=== PATIENT | male | born 1930 | race Caucasian/White ===

== ENCOUNTER → 2018-08-04 | Outpatient (REF) | payer MEDICARE ==
[2018-08-05 11:35] LABS: BASO % 0.5 % (0.0-1.0); EOS # 0.1 10^3/uL (0.0-0.50); EOS % 1.1 % (0.0-3.0); HEMATOCRIT 45.9 % (42.0-52.0); HEMOGLOBIN 14.6 g/dl (13.5-17.5); LYMPH # 2.5 10^3/uL (1.5-4.5); MEAN CORPUSCULAR HEMOGLOBIN 32.8 pg (27.0-33.0); MEAN CORPUSCULAR HGB CONC 31.8 g/dl (32.0-36.5); MEAN CORPUSCULAR VOLUME 103.1 fl (80.0-96.0); MONO # 0.6 10^3/uL (0.0-0.8); MONO % 7.3 % (0.0-5.0); NEUTROPHILS % 60.9 % (36.0-66.0); PLATELET COUNT, AUTOMATED 166 10^3/uL (150-450); RED BLOOD COUNT 4.45 10^6/uL (4.30-6.10); WHITE BLOOD COUNT 8.2 10^3/uL (4.0-10.0)
[2018-08-05 12:32] LABS: ALBUMIN 3.7 GM/DL (3.2-5.2); ALT/SGPT 9 U/L (12-78); BILIRUBIN,TOTAL 0.9 MG/DL (0.2-1.0); BLOOD UREA NITROGEN 16 MG/DL (7-18); CALCIUM LEVEL 8.7 MG/DL (8.8-10.2); CARBON DIOXIDE LEVEL 26 MEQ/L (21-32); CHLORIDE LEVEL 106 MEQ/L (98-107); CREATININE FOR GFR 1.11 MG/DL (0.70-1.30); GLOMERULAR FILTRATION RATE > 60.0 (>35); GLUCOSE, FASTING 113 MG/DL (70-100); POTASSIUM SERUM 4.3 MEQ/L (3.5-5.1); SODIUM LEVEL 141 MEQ/L (136-145); TOTAL PROTEIN 7.5 GM/DL (6.4-8.2)
== END ==
LOC: M SFHCCLAY 13:46
PROVIDERS: ATTEND Family Medicine
DX: R42 Dizziness and giddiness (principal)
CPT/HCPCS: 36415; 80053; 85025; G0463

== ENCOUNTER → 2018-09-01 | Outpatient (CLI) | payer MEDICARE ==
--- NOTE | 2018-09-01 15:54 | REP ---
CHEST, TWO VIEWS: Two views of the chest are performed. There is diffuse interstitial fibrotic change. No definite acute infiltrate is seen. Heart is normal in size. There is calcification and tortuosity of the thoracic aorta. Mediastinal silhouette is otherwise unremarkable. There are mild degenerative changes of the spine. IMPRESSION: Chronic changes. No evidence of acute pulmonary disease.
== END ==
LOC: M CLY 15:07
PROVIDERS: ATTEND Family Medicine
DX: J44.9 Chronic obstructive pulmonary disease, unspecified (principal)
CPT/HCPCS: 71046; G0463

== ENCOUNTER 2018-11-18 20:41 | Emergency (ER) | payer MEDICAID, MEDICARE ==
[~2018-11-18] VITALS: Ht 172.7 cm; Wt 80.0 kg
[2018-11-18] MEDS ORDERED: IPRATROPIUM 0.5MG/ALBUTEROL 2.5MG INH SOL UD 3ML (DUONEB)(J7620) NEB PRN (23:30)
[2018-11-19 00:31] LABS: BASO % 0.3 % (0.0-1.0); EOS % 0.2 % (0.0-3.0); HEMATOCRIT 36.8 % (42.0-52.0); HEMOGLOBIN 11.9 g/dl (13.5-17.5); LYMPH # 2.4 10^3/uL (1.5-4.5); LYMPH % 21.9 % (24.0-44.0); MEAN CORPUSCULAR HEMOGLOBIN 32.7 pg (27.0-33.0); MEAN CORPUSCULAR HGB CONC 32.3 g/dl (32.0-36.5); MEAN CORPUSCULAR VOLUME 101.1 fl (80.0-96.0); MONO # 1.1 10^3/uL (0.0-0.8); MONO % 10.2 % (0.0-5.0); NEUTROPHILS # 7.4 10^3/uL (1.8-7.7); NEUTROPHILS % 66.9 % (36.0-66.0); PLATELET COUNT, AUTOMATED 214 10^3/uL (150-450); RED BLOOD COUNT 3.64 10^6/uL (4.30-6.10); VENOUS BASE EXCESS -2.2 (-2.0-2.0); VENOUS HCO3 23.1 MEQ/L (23.0-27.0); VENOUS O2 SATURATION 57.4 % (60.0-80.0); VENOUS PARTIAL PRESSURE CO2 41.6 mmHg (38.0-50.0); VENOUS PARTIAL PRESSURE O2 35.1 mmHg (30.0-50.0); VENOUS PH 7.363 UNITS (7.330-7.430); VENOUS STANDARD HCO3 21.8 MEQ/L; VENOUS TOTAL CO2 24.4 MEQ/L (24.0-28.0)
[2018-11-19 01:33] VITALS: BP 111/69
[2018-11-19 01:38] LABS: CALCIUM LEVEL 8.4 MG/DL (8.8-10.2); CK-MB VALUE MASS 1.1 NG/ML (<3.6); CREATININE FOR GFR 1.39 MG/DL (0.70-1.30); GLOMERULAR FILTRATION RATE 51.2 (>35); MB/CK RELATIVE INDEX 2.29 (< OR =4); POTASSIUM SERUM 5.1 MEQ/L (3.5-5.1); TROPONIN I 0.2 NG/ML (< 0.10)
[2018-11-19] MEDS ORDERED: LASI20TA3 PO (02:10)
[2018-11-19] MEDS ORDERED: FLOM0.4C39 PO (02:10)
[2018-11-19] MEDS ORDERED: FUROSEMIDE 40 MG TAB PO ONE (02:15)
[2018-11-19] MEDS ORDERED: TAMSULOSIN 0.4 MG CAP PO ONE (02:15)
--- NOTE | 2018-11-19 05:47 | REP ---
Clinical: Cough and dyspnea. Technique: PA and lateral. Comparison: 09/01/2018. Findings: Mediastinum and cardiac silhouette are normal. Diffuse chronic interstitial changes noted throughout the bilateral lung ding. Superimposed interstitial edema with bibasilar infiltrate/atelectasis and small pleural effusions noted. No pneumothorax. Skeletal structures intact. Impression: Findings including increased interstitial markings with bibasilar opacities and small pleural effusions most compatible with pulmonary interstitial edema. Electronically Signed by Ray Campbell MD 11/19/2018 05:39 A
--- NOTE | 2018-11-19 21:36 | ECGEPIP ---
[facility] - ED Test Date: 2018-11-18 Pat Name: ROSA TINAJERO Department: Room: - Gender: Male Abstracter: mick : [id number] Requested By: EL Rabago Order Number: [id number] Reading MD: Betty Carpenter Measurements Intervals [place] Rate: 96 P: ND: 136 QRS: 8 QRSD: 129 T: 196 QT: 387 QTc: 490 Interpretive Statements SINUS RHYTHM WITH OCCASIONAL ECTOPIC PREMATURE COMPLEXES RIGHT BUNDLE BRANCH BLOCK MODERATE T-WAVE ABNORMALITY, CONSIDER ISCHEMIA NO PRIOR Electronically Signed on 11-19-2018 21:36:25 EDT by Betty Carpenter
== END 2018-11-19 02:58 | disposition home or self-care (01) ==
LOC: M ED 20:41
DX: I50.9 Heart failure, unspecified (principal); I45.10 Unspecified right bundle-branch block; K21.9 Gastro-esophageal reflux disease without esophagitis; Z79.899 Other long term (current) drug therapy; Z79.01 Long term (current) use of anticoagulants; Z87.891 Personal history of nicotine dependence

== ENCOUNTER → 2018-11-24 | Outpatient (REF) | payer MEDICARE ==
[~2018-11-24] MED LIST: FLOM0.4C39 PO; FURO20TA2 PO; IPRA0.00 INH; LASI20TA3 PO; OMEP-218 PO; VITA-172 PO
[2018-11-24 18:02] LABS: CALCIUM LEVEL 8.7 MG/DL (8.8-10.2); CREATININE FOR GFR 1.28 MG/DL (0.70-1.30); GLOMERULAR FILTRATION RATE 56.3 (>35); POTASSIUM SERUM 4.1 MEQ/L (3.5-5.1)
== END ==
LOC: M SFHCCLAY 11:47
PROVIDERS: ATTEND Family Medicine
DX: J44.9 Chronic obstructive pulmonary disease, unspecified (principal)

== ENCOUNTER 2018-11-25 13:05 | Inpatient (IN) | payer MEDICARE ==
[~2018-11-25] VITALS: Ht 170.2 cm; Wt 60.1 kg
[~2018-11-25 13:05] MED LIST changes: -FURO20TA2 PO; -IPRA0.00 INH; -OMEP-218 PO; -VITA-172 PO
[2018-11-25] MEDS ORDERED: IPRA0.00 INH (13:19)
[2018-11-25] MEDS ORDERED: OMEP-218 PO (13:19)
[2018-11-25] MEDS ORDERED: methylPREDNISolone INJ 125 MG/2 ML VIAL (J2930) IV ONE (13:45)
[2018-11-25] MEDS ORDERED: IPRATROPIUM 0.5MG/ALBUTEROL 2.5MG INH SOL UD 3ML (DUONEB)(J7620) NEB ONE (13:45)
[2018-11-25 13:47] LABS: BASO % 0.2 % (0.0-1.0); EOS # 0.2 10^3/uL (0.0-0.50); EOS % 2.2 % (0.0-3.0); HEMATOCRIT 38.5 % (42.0-52.0); LYMPH # 2.3 10^3/uL (1.5-4.5); LYMPH % 27.8 % (24.0-44.0); MEAN CORPUSCULAR HEMOGLOBIN 32.2 pg (27.0-33.0); MEAN CORPUSCULAR HGB CONC 31.2 g/dl (32.0-36.5); MEAN CORPUSCULAR VOLUME 103.2 fl (80.0-96.0); MONO # 0.7 10^3/uL (0.0-0.8); MONO % 8.4 % (0.0-5.0); NEUTROPHILS % 60.8 % (36.0-66.0); PLATELET COUNT, AUTOMATED 213 10^3/uL (150-450); RED BLOOD COUNT 3.73 10^6/uL (4.30-6.10); WHITE BLOOD COUNT 8.2 10^3/uL (4.0-10.0)
[2018-11-25 14:06] LABS: CALCIUM LEVEL 8.6 MG/DL (8.8-10.2); CREATININE FOR GFR 1.31 MG/DL (0.70-1.30); GLOMERULAR FILTRATION RATE 54.8 (>35); POTASSIUM SERUM 4.4 MEQ/L (3.5-5.1)
--- NOTE | 2018-11-25 14:13 | ECGEPIP ---
[facility] - ED Test Date: 2018-11-25 Pat Name: ROSA TINAJERO Department: Room: - Gender: Male Hospitality Host: JAYJAY : 1930 Requested By: Betty Carpenter Order Number: [id number] Reading MD: Chavo Dawn Measurements Intervals [place] Rate: 163 P: [place]: -1 QRS: 32 QRSD: 134 T: QT: 274 QTc: 451 Interpretive Statements ATRIAL FIBRILLATION WITH RAPID VENTRICULAR RESPONSE WITH ABERRANT CONDUCTION OR VENTRICULAR PREMATURE COMPLEXES Low QRS complex voltage in the limb leads Nonspecific ST-T wave abnormalities Prolonged QTc INDETERMINATE AXIS RIGHT BUNDLE BRANCH BLOCK Previous tracing done on 11-18-18 was normal sinus rhythm Electronically Signed on 11-25-2018 14:12:58 EDT by Chavo Dawn
[2018-11-25 15:00] LABS: ALBUMIN 3.3 GM/DL (3.2-5.2); BILIRUBIN,DIRECT 0.4 MG/DL (0.0-0.2); FREE T4 1.4 NG/DL (0.76-1.46); MB/CK RELATIVE INDEX 4.76 (< OR =4); PHOSPHORUS LEVEL 3.7 MG/DL (2.5-4.9); THYROID STIMULATING HORMONE 1.67 uIU/ML (0.358-3.740); TOTAL PROTEIN 6.9 GM/DL (6.4-8.2); TROPONIN I 0.09 NG/ML (< 0.10)
[2018-11-25] MEDS ORDERED: FLOM0.4C39 PO (15:01)
[2018-11-25] MEDS ORDERED: FURO20TA2 PO (15:01)
[2018-11-25] MEDS ORDERED: VITA-172 PO (15:01)
--- NOTE | 2018-11-25 15:08 | REP ---
Clinical: Shortness of breath. Technique: AP and lateral. Findings: Cardiomegaly is appreciated along with evidence to suggest pulmonary interstitial edema, bibasilar atelectasis and moderate pleural effusions. Impression: Cardiomegaly with moderate pleural effusions, atelectasis and interstitial edema. Electronically Signed by Ray Campbell MD 11/25/2018 02:59 P
[2018-11-25] MEDS: METOPROLOL 5 MG/5 ML VIAL IV SCH ×3 (15:20→21:51)
[2018-11-25] MEDS ORDERED: FUROSEMIDE 40 MG/4 ML VIAL (J1940) IV ONE (15:45)
[2018-11-25 17:31] LABS: INR 1.23; PROTHROMBIN TIME 15.2 SECONDS (11.8-14.0)
[2018-11-25] MEDS ORDERED: MAALOX 30 ML SUSP *UDC PO PRN (18:15)
[2018-11-25] MEDS ORDERED: ACETAMINOPHEN TAB 650MG DOSE (2X325MG) PO PRN (18:15)
[2018-11-25] MEDS ORDERED: MOM 30ML SUSPENSION UDC PO PRN (18:15)
[2018-11-25] MEDS ORDERED: DIGOXIN INJ 0.5 MG/2 ML AMP (J1160) IV STA (18:22)
[2018-11-25] MEDS ORDERED: IPRATROPIUM 0.5MG/ALBUTEROL 2.5MG INH SOL UD 3ML (DUONEB)(J7620) NEB PRN (18:30)
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
[2018-11-25 21:02] VITALS: BP 127/78
[2018-11-25] MEDS: METOPROLOL TART 12.5 MG PER 1/2 TAB PO SCH (22:30)
[2018-11-25] MEDS: TAMSULOSIN 0.4 MG CAP PO SCH (22:30)
[2018-11-25] MEDS: APIXABAN 5 MG TAB (ELIQUIS) PO SCH (22:30)
[2018-11-25] MEDS: OMEPRAZOLE 20 MG CAP PO SCH (22:31)
[2018-11-25 23:59] VITALS: BP 145/82
[2018-11-26 04:00] VITALS: BP 136/68
[2018-11-26 05:39] LABS: HEMATOCRIT 37.3 % (42.0-52.0); HEMOGLOBIN 11.7 g/dl (13.5-17.5); MEAN CORPUSCULAR HEMOGLOBIN 31.1 pg (27.0-33.0); MEAN CORPUSCULAR HGB CONC 31.4 g/dl (32.0-36.5); MEAN CORPUSCULAR VOLUME 99.2 fl (80.0-96.0); PLATELET COUNT, AUTOMATED 228 10^3/uL (150-450); RED BLOOD COUNT 3.76 10^6/uL (4.30-6.10); WHITE BLOOD COUNT 4.6 10^3/uL (4.0-10.0)
[2018-11-26] MEDS: METOPROLOL TART 12.5 MG PER 1/2 TAB PO SCH ×4 (05:49→21:08)
[2018-11-26 05:57] LABS: CALCIUM LEVEL 8.2 MG/DL (8.8-10.2); CREATININE FOR GFR 1.47 MG/DL (0.70-1.30); MAGNESIUM LEVEL 1.9 MG/DL (1.8-2.4); POTASSIUM SERUM 4.6 MEQ/L (3.5-5.1)
[2018-11-26] MEDS ORDERED: DIGOXIN INJ 0.5 MG/2 ML AMP (J1160) IV ONE (06:00)
[2018-11-26 08:00] VITALS: BP 142/50
[2018-11-26] MEDS: FUROSEMIDE 40 MG TAB PO SCH ×2 (09:00→16:21)
[2018-11-26 12:00] VITALS: BP 140/80
[2018-11-26] MEDS ORDERED: SLF 3 ML SYR IV PRN (12:15)
[2018-11-26] MEDS: APIXABAN 5 MG TAB (ELIQUIS) PO SCH ×2 (14:20→21:08)
[2018-11-26] MEDS: CYANOCOBALAMIN 500 MCG TAB PO SCH (14:25)
[2018-11-26] MEDS ORDERED: VARIBAR PUDDING 40% w/v 230ML TUBE As Ordered ONE (15:04)
[2018-11-26] MEDS ORDERED: E-Z-PAQUE 96% w/w SUSP 176GM BTL As Ordered ONE (15:05)
[2018-11-26] MEDS ORDERED: BARIUM SULFATE 700 MG TABLET (E-Z-DISK) As Ordered ONE (15:05)
[2018-11-26] MEDS ORDERED: VARIBAR NECTAR 40% w/v 240ML SUSP BTL As Ordered ONE (15:05)
[2018-11-26 16:00] VITALS: BP 162/72
--- NOTE | 2018-11-26 16:10 | NUR ---
Modified Barium Swallow Study completed d/t consistent cough prior to and during PO intake. Wet vocal quality throughout. Pt presents with mild oral phase dysphagia as characterized poor dentition and decreased a/p transfer (observed with barium tablet). Recommend: Level 2 solids and regular thin liquids. Meds crushed in puree assist. Full upright position during and following (30-45 min)meals. Addendum: 11/28/18 at 1101 by PATEL SIMPSON [facility] SP Amended: Links added.
[2018-11-26] MEDS: SLF 3 ML SYR IV SCH ×2 (16:20→21:09)
--- NOTE | 2018-11-26 17:54 | ECHO ---
DATE OF PROCEDURE: 11/26/2018 AGE: 88 GENDER: Male HEIGHT: 67 inches WEIGHT: 147 pounds BODY SURFACE AREA: 1.78 m2. PATIENT LOCATION: Inpatient, PCU, room 3211 REFERRING PHYSICIAN: Domo Rasmussen MD INDICATION: Dyspnea. 2-D MEASUREMENTS: RV: 4.4 cm LV: 4.8 cm Septum: 1.2 cm Posterior wall: 1.2 cm Aortic root: 3.3 cm LA: 4.5 cm LVEF: 45 - 50% DOPPLER MEASUREMENTS: AV: 1.76 m/s LVOT: 0.58 m/s LVOT diameter: 1.7 cm Mean AV systolic gradient: 7 mmHg Dimensionless index: 0.3 MV-E: 117 Early mitral deceleration time: 151 ms E prime: 5, E/E prime ratio: 22 PCWP: 22 mmHg PV: 0.58 RVSP: 55 mmHg IVC: 2.8 cm COMMENTS Underlying atrial fibrillation with somewhat rapid ventricular response averaging 100 - 110 bpm. Right bundle branch block. Somewhat challenging study in light of the patient's body habitus, but diagnostically useful information was still obtained. Borderline concentric left ventricle hypertrophy with at least mild global hypokinesis. Mild to moderately dilated left atrium. Unable to comment on LV diastolic function in light of atrial fibrillation, but current estimated mean left atrial pressure appeared to be elevated. Moderately dilated right heart chambers with marked right ventricular free wall hypokinesis and Doppler evidence of at least moderate to moderately severe pulmonary hypertension. Prominently dilated IVC with reduced respiratory collapse in keeping with elevated central venous pressure/right heart failure. Moderately severe thickening of three equal size aortic cusps with moderate aortic stenosis. Peak or mean transvalvular gradient was relatively soft, yet his ejection fraction is reduced, underestimating the degree of aortic stenosis. Very mild aortic insufficiency. Normal aortic dimensions Severe mitral annular calcification with thickening of the mitral leaflets but no LV inflow tract obstruction and only mild insufficiency. Normal appearing tricuspid valve with at least mild - moderate insufficiency. No apparent intracardiac mass or pericardial effusion.
[2018-11-26 20:00] VITALS: BP 134/63
[2018-11-26] MEDS: OMEPRAZOLE 20 MG CAP PO SCH (21:08)
[2018-11-26] MEDS: TAMSULOSIN 0.4 MG CAP PO SCH (21:08)
[2018-11-26 23:59] VITALS: BP 149/73
--- NOTE | 2018-11-27 01:49 | IPNPDOC ---
Subjective Date Seen The patient was seen on 11/26/18. Subjective Chief Complaint/HPI dyspnea Events since last encounter Patient seen today after completing swallow eval, OK for mechanical soft diet. He is eager to be discharged home, though he still has significant cough and has not diuresed much. Constitutional: Denies: Chills, Fever Pulmonary: Reports: Dyspnea, Cough Cardiovascular: Reports: Palpitations; Denies: Chest Pain Gastrointestinal: Denies: Nausea, Vomiting, Diarrhea, Constipation Psych: Reports: Mood Normal Objective Physical Examination General Exam: Positive: Alert, Cooperative, Moderate Distress Eye Exam: Positive: PERRLA, Conjunctiva & lids normal, EOMI; Negative: Sclera icteric ENT Exam: Positive: Atraumatic, Mucous membr. moist/pink, Pharynx Normal Neck Exam: Positive: Supple, JVD Chest Exam: Positive: Rales, Diminished Heart Exam: Positive: Tachycardic, Irregular Rhythm, Normal S1, Normal S2; Negative: Murmurs Telemetry: Positive: Atrial fibrillation Abdomen Exam: Positive: Normal bowel sounds, Soft; Negative: Tenderness, Hepatospenomegaly Extremity Exam: Positive: Edema (mild), Normal pulses; Negative: Clubbing, Cyanosis Skin Exam: Positive: Nl turgor and temperature; Negative: Breakdown, Lesion Neuro Exam: Positive: Normal Gait, Normal Speech, Cranial Nerves 3-12 NL, Reflexes 2+ Psych Exam: Positive: Mental status NL, Mood NL, Oriented x 3 Assessment /Plan Problems (1) Congestive heart failure Permanent Comment: Echocardiogram 11/2018: Borderline concentric left ventricle hypertrophy with at least mild global hypokinesis. Mild to moderately dilated left atrium. Unable to comment on LV diastolic function in light of atrial fibrillation, but current estimated mean left atrial pressure appeared to be elevated. Moderately dilated right heart chambers with marked right ventricular free wall hypokinesis and Doppler evidence of at least moderate to moderately severe pulmonary hypertension. Prominently dilated IVC with reduced respiratory collapse in keeping with elevated central venous pressure/right heart failure. Moderately severe thickening of three equal size aortic cusps with moderate aortic stenosis. Peak or mean transvalvular gradient was relatively soft, yet his ejection fraction is reduced, underestimating the degree of aortic stenosis. Very mild aortic insufficiency. Normal aortic dimensions Severe mitral annular calcification with thickening of the mitral leaflets but no LV inflow tract obstruction and only mild insufficiency. Normal appearing tricuspid valve with at least mild - moderate insufficiency. Last Edited By: Kenia Dowling DO on Nov 27, 2018 01:45 Status: Acute Problem Text: Echo read today, with pulmonary HTN,and suggestion of both L and R heart failure. Attempts at diuresis have been somewhat limited secondary to borderline BP. Fluid restriction ordered. Monitoring I&Os and daily weights. (2) Atrial fibrillation Status: Acute Problem Text: On both digoxin and metoprolol; adjusted metoprolol to bid instead of tid dosing. He is fairly well rate controlled, and anticoagulated on Eliquis. Plan/VTE VTE Prophylaxis Ordered?: Yes VS, I&O, 24H, Fishbone Vital Signs/I&O Vital Signs Date Time Temp Pulse Resp B/P (MAP) Pulse Ox O2 Delivery O2 Flow Rate FiO2 11/26/18 23:59 97.3 101 18 149/73 (98) 96 11/26/18 04:30 11/25/18 20:33 Nasal Cannula I&O- Last 24 Hours up to 6 AM 11/27/18 05:59 Intake Total 0 ml Output Total 450 ml Balance -450 ml Laboratory Data 24H LABS Laboratory Tests 2 11/26/18 05:13: Nucleated Red Blood Cells % (auto) 0.0, Anion Gap 9, Glomerular Filtration Rate 48.0, Blood Urea Nitrogen 21H, Creatinine 1.47H, Sodium Level 134L, Potassium Level 4.6, Chloride Level 99, Carbon Dioxide Level 26, Calcium Level 8.2L, Magnesium Level 1.9 CBC/BMP Laboratory Tests 11/26/18 05:13 Red Blood Count 3.76 L, Mean Corpuscular Volume 99.2 H, Mean Corpuscular Hemoglobin 31.1, Mean Corpuscular Hemoglobin Concent 31.4 L, Red Cell Distribution Width 14.6 H, Calcium Level 8.2 L Microbiology Microbiology 11/25/18 Gram Stain - Final, Resulted 11/25/18 Sputum Culture - Preliminary, Resulted Strep Agalactiae Group B KENIA DOWLING DO Nov 27, 2018 01:49
[2018-11-27 04:00] VITALS: BP 134/80
[2018-11-27] MEDS: SLF 3 ML SYR IV SCH ×3 (05:03→20:48)
[2018-11-27] MEDS ORDERED: METOPROLOL TART 12.5 MG PER 1/2 TAB PO SCH (09:00)
[2018-11-27] MEDS ORDERED: DIGOXIN 0.125 MG TAB PO SCH (09:00)
[2018-11-27] MEDS: FUROSEMIDE 40 MG TAB PO SCH ×2 (10:27→15:54)
[2018-11-27] MEDS: APIXABAN 5 MG TAB (ELIQUIS) PO SCH ×2 (10:27→20:14)
[2018-11-27] MEDS: CYANOCOBALAMIN 500 MCG TAB PO SCH (10:27)
[2018-11-27 12:00] VITALS: BP 140/60
[2018-11-27 12:47] LABS: HEMATOCRIT 39.2 % (42.0-52.0); HEMOGLOBIN 12.5 g/dl (13.5-17.5); MEAN CORPUSCULAR HEMOGLOBIN 31.7 pg (27.0-33.0); MEAN CORPUSCULAR HGB CONC 31.9 g/dl (32.0-36.5); MEAN CORPUSCULAR VOLUME 99.5 fl (80.0-96.0); PLATELET COUNT, AUTOMATED 268 10^3/uL (150-450); RED BLOOD COUNT 3.94 10^6/uL (4.30-6.10)
--- NOTE | 2018-11-27 13:01 | IPNPDOC ---
Subjective Date Seen The patient was seen on 11/27/18. Subjective Chief Complaint/HPI Pt this morning has been combative towards the business control specialist. Intermittently confused and uncooperative to nursing. Ai reports consistency in MS this morning. Nurse reports 1.8 followed by 4.2 second pause this morning. General: Reports: ROS Unobtainable Objective Physical Examination General Exam: Positive: Alert, No Acute Distress (pt appears comfortable, he doesn't clearly answer questions); Negative: Cooperative ENT Exam: Positive: Mucous membr. moist/pink Neck Exam: Positive: Supple, JVD Chest Exam: Positive: Rales (bibasilar), Diminished (throughout) Heart Exam: Positive: Tachycardic, Irregular Rhythm, Normal S1, Normal S2; Negative: Murmurs Telemetry: Positive: Atrial fibrillation Abdomen Exam: Positive: Normal bowel sounds, Soft; Negative: Tenderness, Hepatospenomegaly Extremity Exam: Positive: Edema (mild), Normal pulses; Negative: Clubbing, Cyanosis Skin Exam: Positive: Nl turgor and temperature; Negative: Breakdown, Lesion Neuro Exam: Positive: Normal Gait, Normal Speech, Cranial Nerves 3-12 NL, Reflexes 2+ Psych Exam: Positive: Mental status NL, Mood NL, Oriented x 3 Assessment /Plan Problems (1) Digoxin toxicity Status: Acute Problem Text: mild sx of confusion/anorexia-held p today's dose (2) Atrial fibrillation Status: Acute Response to Treatment: Stable Problem Text: 11/27 held dig (was loaded c 0.5 IV 11/25-11/26) c level today of 2.1! and decreased met tar 12.5 BID to 6.25 QID c hold parameters given 1.8 and 4.2 s pause this morning. Spoke with Reginaldo who recommends conservative mgmt. Long dw who has limited insight to his medical condition, she insists on FULL CODE status 11/26 On both digoxin and metoprolol; adjusted metoprolol to bid instead of tid dosing. He is fairly well rate controlled, and anticoagulated on Eliquis. (3) Systolic congestive heart failure Problem Text: 11/27 on Lasix 40 mg twice daily, K 3.8-gave K 20 po x 1, tf cr (baseline ~1.1-1.2); + bruna 12.5, favor LD ARB vs Entresto if BP tolerates (4) Pulmonary hypertension Status: Chronic Response to Treatment: Stable Problem Text: moderate-severe by 11/26/2018 TTE (5) Aortic stenosis Status: Chronic Response to Treatment: Stable Problem Text: moderate by 11/26/18 TTE (6) CKD (chronic kidney disease), stage III Status: Chronic Problem Text: baseline cr 1.1-1.2 Plan/VTE VTE Prophylaxis Ordered?: Yes VS, I&O, 24H, Fishbone Vital Signs/I&O Vital Signs Date Time Temp Pulse Resp B/P (MAP) Pulse Ox O2 Delivery O2 Flow Rate FiO2 11/27/18 10:27 99 145/68 11/27/18 08:00 96.8 18 90 11/26/18 04:30 11/25/18 20:33 Nasal Cannula I&O- Last 24 Hours up to 6 AM 11/27/18 06:00 Intake Total 0 ml Output Total 650 ml Balance -650 ml Laboratory Data 24H LABS Laboratory Tests 2 11/27/18 12:22: CBC/BMP Microbiology Microbiology 11/25/18 Gram Stain - Final, Resulted 11/25/18 Sputum Culture - Preliminary, Resulted Strep Agalactiae Group B Yeast Like Organism JAZMYN MUIR PA-C Nov 27, 2018 13:01 Jd Mitchell M.D. Nov 27, 2018 14:14
[2018-11-27 13:04] LABS: CALCIUM LEVEL 8.3 MG/DL (8.8-10.2); CREATININE FOR GFR 1.31 MG/DL (0.70-1.30); GLOMERULAR FILTRATION RATE 54.8 (>35); MAGNESIUM LEVEL 2.3 MG/DL (1.8-2.4); POTASSIUM SERUM 3.8 MEQ/L (3.5-5.1)
[2018-11-27 13:32] LABS: DIGOXIN LEVEL 2.1 NG/ML (0.5-2.0)
[2018-11-27] MEDS ORDERED: POTASSIUM CHLORIDE 10 MEQ SR TABLET PO ONE (14:15)
[2018-11-27] MEDS: SPIRONOLACTONE 12.5MG PER 1/2 TABLET PO SCH (15:54)
[2018-11-27 16:00] VITALS: BP 128/60
[2018-11-27] MEDS: METOPROLOL TART 25 MG TABLET PO SCH ×2 (18:00→23:34)
[2018-11-27] MEDS ORDERED: diphenhydrAMINE 25 MG CAP PO PRN (18:30)
[2018-11-27 20:00] VITALS: BP 115/81
[2018-11-27] MEDS: TAMSULOSIN 0.4 MG CAP PO SCH (20:14)
[2018-11-27] MEDS: OMEPRAZOLE 20 MG CAP PO SCH (20:14)
[2018-11-27 23:59] VITALS: BP 97/59
[2018-11-28] VITALS (8 sets, daily range): BP systolic 82–146; BP diastolic 48–80
[2018-11-28] MEDS: SLF 3 ML SYR IV SCH ×3 (05:05→20:32)
[2018-11-28 05:20] LABS: BASO % 0.4 % (0.0-1.0); EOS # 0.2 10^3/uL (0.0-0.50); HEMATOCRIT 40.5 % (42.0-52.0); HEMOGLOBIN 12.8 g/dl (13.5-17.5); LYMPH # 2.2 10^3/uL (1.5-4.5); MEAN CORPUSCULAR HEMOGLOBIN 31.1 pg (27.0-33.0); MEAN CORPUSCULAR HGB CONC 31.6 g/dl (32.0-36.5); MEAN CORPUSCULAR VOLUME 98.5 fl (80.0-96.0); MONO # 0.6 10^3/uL (0.0-0.8); MONO % 7.2 % (0.0-5.0); NEUTROPHILS # 5.4 10^3/uL (1.8-7.7); PLATELET COUNT, AUTOMATED 252 10^3/uL (150-450); RED BLOOD COUNT 4.11 10^6/uL (4.30-6.10); WHITE BLOOD COUNT 8.5 10^3/uL (4.0-10.0)
[2018-11-28] MEDS: METOPROLOL TART 25 MG TABLET PO SCH ×3 (05:30→18:27)
[2018-11-28 05:50] LABS: BLOOD UREA NITROGEN 19 MG/DL (7-18); CALCIUM LEVEL 7.8 MG/DL (8.8-10.2); CARBON DIOXIDE LEVEL 32 MEQ/L (21-32); CHLORIDE LEVEL 99 MEQ/L (98-107); CREATININE FOR GFR 1.13 MG/DL (0.70-1.30); GLOMERULAR FILTRATION RATE > 60.0 (>35); GLUCOSE, FASTING 90 MG/DL (70-100); POTASSIUM SERUM 4.1 MEQ/L (3.5-5.1); SODIUM LEVEL 138 MEQ/L (136-145)
[2018-11-28] MEDS: APIXABAN 5 MG TAB (ELIQUIS) PO SCH ×2 (08:05→20:32)
[2018-11-28] MEDS: CYANOCOBALAMIN 500 MCG TAB PO SCH (08:05)
[2018-11-28] MEDS: FUROSEMIDE 40 MG TAB PO SCH ×2 (08:06→17:00)
[2018-11-28] MEDS: SPIRONOLACTONE 12.5MG PER 1/2 TABLET PO SCH (08:06)
--- NOTE | 2018-11-28 10:20 | IPNPDOC ---
Subjective Date Seen The patient was seen on 11/28/18. Subjective Chief Complaint/HPI Pt this morning is without new concerns. He states that he is feeling fine and would like to go home. His should be coming soon and he hopes she will take him. General: Reports: Fatigue Constitutional: Denies: Chills, Fever ENT: Denies: Head Aches Pulmonary: Denies: Dyspnea, Cough Cardiovascular: Denies: Chest Pain, Palpitations Gastrointestinal: Denies: Nausea, Vomiting, Abdominal Pain, Diarrhea Neurological: Denies: Weakness Psych: Reports: Mood Normal Objective Physical Examination General Exam: Positive: Alert, Cooperative, No Acute Distress (pt appears comfortable) ENT Exam: Positive: Mucous membr. moist/pink Neck Exam: Positive: Supple, JVD Chest Exam: Positive: Rales (bibasilar), Diminished (throughout) Heart Exam: Positive: Tachycardic, Irregular Rhythm, Normal S1, Normal S2; Negative: Murmurs Telemetry: Positive: Atrial fibrillation Abdomen Exam: Positive: Normal bowel sounds, Soft; Negative: Tenderness, Hepatospenomegaly Extremity Exam: Positive: Edema (trace BLE), Normal pulses; Negative: Clubbing, Cyanosis Skin Exam: Positive: Nl turgor and temperature; Negative: Breakdown, Lesion Neuro Exam: Positive: Normal Gait, Normal Speech, Cranial Nerves 3-12 NL, Reflexes 2+ Psych Exam: Positive: Mental status NL, Mood NL, Oriented x 3 Assessment /Plan Assessment Spoke with patient and his . EVITA filled out, expressing DNR wishes. They hope that he might be DCed tomorrow. I suspect that his I&Os have been inaccurate, but nursing staff states that they are at least confident of his output today, and his evening Lasix was held because he was strongly net negative. -- CDT Problems (1) Digoxin toxicity Status: Acute Problem Text: 11/28 MS improved, Dig has been discontinued 11/27 mild sx of confusion/anorexia-held p today's dose (2) Atrial fibrillation Status: Acute Response to Treatment: Stable Problem Text: 11/28 Metoprolol tartrate 6.25 mg q6h, cont to monitor on tele. Spoke with pt this morning regarding his ECHO results, he expressed that he wo uld like to be DNR/DNI. he would like to have this conversation with his before signing. 11/27 held dig (was loaded c 0.5 IV 11/25-11/26) c level today of 2.1! and decreased met tar 12.5 BID to 6.25 QID c hold parameters given 1.8 and 4.2 s pause this morning. Spoke with Reginaldo who recommends conservative mgmt. Long dw who has limited insight to his medical condition, she insists on FULL CODE status 11/26 On both digoxin and metoprolol; adjusted metoprolol to bid instead of tid dosing. He is fairly well rate controlled, and anticoagulated on Eliquis. (3) Systolic congestive heart failure Problem Text: 11/28 Lasix 40 mg BID, WENDY 12.5 mg daily, met tartrate 6.25 mg q6h. Pressures soft this morning, cont to monitor. Unlikely to tolerate ARB 11/27 on Lasix 40 mg twice daily, K 3.8-gave K 20 po x 1, tf cr (baseline ~1.1- 1.2); + wendy 12.5, favor LD ARB vs Entresto if BP tolerates (4) Pulmonary hypertension Status: Chronic Response to Treatment: Stable Problem Text: moderate-severe by 11/26/2018 TTE (5) Aortic stenosis Status: Chronic Response to Treatment: Stable Problem Text: moderate by 11/26/18 TTE (6) CKD (chronic kidney disease), stage III Status: Chronic Problem Text: baseline cr 1.1-1.2 Plan/VTE VTE Prophylaxis Ordered?: Yes VS, I&O, 24H, Fishbone Vital Signs/I&O Vital Signs Date Time Temp Pulse Resp B/P (MAP) Pulse Ox O2 Delivery O2 Flow Rate FiO2 11/28/18 08:00 98.0 96 19 146/70 (95) 95 11/26/18 04:30 11/25/18 20:33 Nasal Cannula I&O- Last 24 Hours up to 6 AM 11/28/18 06:00 Intake Total 360 ml Output Total 1250 ml Balance -890 ml Laboratory Data 24H LABS Laboratory Tests 2 11/27/18 12:22: Nucleated Red Blood Cells % (auto) 0.0, Anion Gap 10, Glomerular Filtration Rate 54.8, Blood Urea Nitrogen 22H, Creatinine 1.31H, Sodium Level 137, Potassium Level 3.8, Chloride Level 98, Carbon Dioxide Level 29, Calcium Level 8.3L, Magnesium Level 2.3, Digoxin Level 2.1H 11/28/18 05:06: Nucleated Red Blood Cells % (auto) 0.0, Anion Gap 7L, Glomerular Filtration Rate > 60.0, Blood Urea Nitrogen 19H, Creatinine 1.13, Sodium Level 138, Potassium Level 4.1, Chloride Level 99, Carbon Dioxide Level 32, Calcium Level 7.8L, Immature Granulocyte % (Auto) 0.4, White Blood Count 8.5, Red Blood Count 4.11L, Hemoglobin 12.8L, Hematocrit 40.5L, Mean Corpuscular Volume 98.5H, Mean Corpuscular Hemoglobin 31.1, Mean Corpuscular Hemoglobin Concent 31.6L, Red Cell Distribution Width 14.6H, Platelet Count 252, Neutrophils (%) (Auto) 64.0, Lymph ocytes (%) (Auto) 26.0, Monocytes (%) (Auto) 7.2H, Eosinophils (%) (Auto) 2.0, Basophils (%) (Auto) 0.4, Neutrophils # (Auto) 5.4, Lymphocytes # (Auto) 2.2, Monocytes # (Auto) 0.6, Eosinophils # (Auto) 0.2, Basophils # (Auto) 0.0 CBC/BMP Laboratory Tests 11/27/18 12:22 Red Blood Count 3.94 L, Mean Corpuscular Volume 99.5 H, Mean Corpuscular Hemoglobin 31.7, Mean Corpuscular Hemoglobin Concent 31.9 L, Red Cell Distribution Width 14.7 H, Calcium Level 8.3 L 11/28/18 05:06 Red Blood Count 4.11 L, Mean Corpuscular Volume 98.5 H, Mean Corpuscular Hemoglobin 31.1, Mean Corpuscular Hemoglobin Concent 31.6 L, Red Cell Distribution Width 14.6 H, Calcium Level 7.8 L, Neutrophils (%) (Auto) 64.0, Lymphocytes (%) (Auto) 26.0, Monocytes (%) (Auto) 7.2 H, Eosinophils (%) (Auto) 2.0, Basophils (%) (Auto) 0.4, Neutrophils # (Auto) 5.4, Lymphocytes # (Auto) 2.2, Monocytes # (Auto) 0.6, Eosinophils # (Auto) 0.2, Basophils # (Auto) 0.0 Microbiology Microbiology 7/2/19 Gram Stain - Final, Complete 11/25/18 Sputum Culture - Final, Complete Strep Agalactiae Group B Stenotrophomonas Maltophilia Yeast Like Organism JAZMYN MUIR PA-C Nov 28, 2018 10:19 KENIA DOWLING DO Nov 28, 2018 23:30
[2018-11-28 16:44] LABS: NT-PRO BNP 36224 PG/ML (<450)
--- NOTE | 2018-11-28 17:22 | REP ---
Clinical: Shortness of breath. CHF. Technique: PA and lateral. Comparison: 11/18/1989 Findings: Mediastinum and cardiac silhouette are stable and within normal limits. Lung ding demonstrate diffuse chronic COPD and emphysematous changes with scattered scarring and fibrosis. Bibasilar atelectasis and small right pleural effusion are noted but improved when compared through 11/18/2018. Impression: Basilar atelectasis and small right pleural effusion. Findings appear improved as compared to prior. Electronically Signed by Ray Campbell MD 11/28/2018 05:14 P
[2018-11-28] MEDS: OMEPRAZOLE 20 MG CAP PO SCH (20:32)
[2018-11-28] MEDS: TAMSULOSIN 0.4 MG CAP PO SCH (20:32)
[2018-11-29 00:16] VITALS: BP 118/60
[2018-11-29] MEDS: METOPROLOL TART 25 MG TABLET PO SCH ×3 (00:16→12:06)
[2018-11-29 04:30] VITALS: BP 120/56
[2018-11-29 05:52] LABS: HEMATOCRIT 44.8 % (42.0-52.0); HEMOGLOBIN 14.4 g/dl (13.5-17.5); MEAN CORPUSCULAR HEMOGLOBIN 31.4 pg (27.0-33.0); MEAN CORPUSCULAR HGB CONC 32.1 g/dl (32.0-36.5); MEAN CORPUSCULAR VOLUME 97.6 fl (80.0-96.0); PLATELET COUNT, AUTOMATED 278 10^3/uL (150-450); RED BLOOD COUNT 4.59 10^6/uL (4.30-6.10); WHITE BLOOD COUNT 8.1 10^3/uL (4.0-10.0)
[2018-11-29 06:24] LABS: ALBUMIN 3.1 GM/DL (3.2-5.2); BILIRUBIN,TOTAL 1.1 MG/DL (0.2-1.0); CALCIUM LEVEL 8.4 MG/DL (8.8-10.2); CREATININE FOR GFR 1.22 MG/DL (0.70-1.30); DIGOXIN LEVEL 0.9 NG/ML (0.5-2.0); GLOMERULAR FILTRATION RATE 59.5 (>35); POTASSIUM SERUM 3.5 MEQ/L (3.5-5.1)
[2018-11-29] MEDS: SLF 3 ML SYR IV SCH ×2 (06:28→14:42)
[2018-11-29 08:00] VITALS: BP 118/68
[2018-11-29] MEDS: CYANOCOBALAMIN 500 MCG TAB PO SCH (09:25)
[2018-11-29] MEDS: APIXABAN 5 MG TAB (ELIQUIS) PO SCH (09:25)
[2018-11-29] MEDS: SPIRONOLACTONE 12.5MG PER 1/2 TABLET PO SCH (09:25)
[2018-11-29] MEDS: FUROSEMIDE 40 MG TAB PO SCH (09:25)
[2018-11-29 12:00] VITALS: BP 100/60
[2018-11-29 12:06] VITALS: BP 100/60
[2018-11-29] MEDS ORDERED: ELIQ5TAB PO ×2 (13:34→20:56)
[2018-11-29] MEDS ORDERED: METO1TAB87 PO ×2 (13:34→20:56)
[2018-11-29] MEDS ORDERED: FURO40TA2 PO ×2 (13:34→20:56)
[2018-11-29] MEDS ORDERED: ALDA25TA2 PO (13:34)
[2018-11-29] MEDS ORDERED: VITA500T40 PO (20:56)
[2018-11-29] MEDS ORDERED: SPIR-10 PO (20:56)
[2018-11-29] MEDS ORDERED: IPRA0.00 INH (20:59)
[2018-11-30] MEDS ORDERED: FUROSEMIDE 40 MG TAB PO SCH
--- NOTE | 2018-11-30 02:02 | DS.PDOC ---
Discharge Summary General Date of Admission Nov 25, 2018 at 18:11 Date of Discharge November 30, 2018 Primary Care Physician: Manny Carnes M.D. Attending Physician: KENIA DOWLING DO Discharge Summary PROCEDURES PERFORMED DURING STAY: Echocardiogram, read as Underlying atrial fibrillation with somewhat rapid ventricular response averaging 100 - 110 bpm. Right bundle branch block. Somewhat challenging study in light of the patient's body habitus, but diagnostically useful information was still obtained. Borderline concentric left ventricle hypertrophy with at least mild global hypokinesis. Mild to moderately dilated left atrium. Unable to comment on LV diastolic function in light of atrial fibrillation, but current estimated mean left atrial pressure appeared to be elevated. Moderately dilated right heart chambers with marked right ventricular free wall hypokinesis and Doppler evidence of at least moderate to moderately severe pulmonary hypertension. Prominently dilated IVC with reduced respiratory collapse in keeping with elevated central venous pressure/right heart failure. Moderately severe thickening of three equal size aortic cusps with moderate aortic stenosis. Peak or mean transvalvular gradient was relatively soft, yet his ejection fraction is reduced, underestimating the degree of aortic stenosis. Very mild aortic insufficiency. Normal aortic dimensions Severe mitral annular calcification with thickening of the mitral leaflets but no LV inflow tract obstruction and only mild insufficiency. Normal appearing tricuspid valve with at least mild - moderate insufficiency. No apparent intracardiac mass or pericardial effusion. ADMITTING DIAGNOSES: 1. atrial fibrillation 2. congestive heart failure 3. dyspnea and cough 4. benign prostatic hypertrophy DISCHARGE DIAGNOSES: 1. digoxin toxicity 2. atrial fibrillation 3. systolic congestive heart failure 4. pulmonary hypertension 5. aortic stenosis 6. CKD stage 3 COMPLICATIONS/CHIEF COMPLAINT: Chf,New Onset A Fib. HISTORY OF PRESENT ILLNESS: 88m hx of [facility] 'work camp' as a child, cva, cea on left, carotid stent on right, AAAR, former smoker, presented to ED last week with swelling and sob, found to be in new chf, given script for lasix but left ama, now returns still sob, coughing, but reports swelling is much better. reports he cannot lay flat, uses two pillows. She has not been able to sleep all week worried about his breathing at night. He denies chest pains and palpitations. In the ED noted to be in new afib with rapid response. given lopressor iv and lasix. hr improved but bp now pretty low. HOSPITAL COURSE: Patient was admitted to the hospital and had an echocardiogram (results above.) His medication was adjusted; digoxin was held after he experienced digoxin toxicity, Eliquis was started for anticoagulation, and he best tolerated metoprolol in Q6 hour dosing. During his hospitalization he cou ld not consistently tolerate Lasix BID, so when he was discharged it was written for only once daily dosing. He and his were eager for discharge home, and by the afternoon of 11/29 he had passed physical therapy, achieved rate control, and demonstrated reasonable blood pressure for 24 hours, so patient was discharged home. Counseled to call Saturday for followup with PCP. PHYSICAL EXAMINATION ON DISCHARGE: VITAL SIGNS: Please see below. GENERAL: elderly male, NAD HEENT: mucous membranes moist NECK: supple CARDIOVASCULAR EXAMINATION: regular rate and rhythm RESPIRATORY EXAMINATION: clear to auscultation bilat ABDOMINAL EXAMINATION: soft, nontender and nondistended EXTREMITIES: trace edema SKIN: clean, dry, intact LABORATORY DATA: Please see below. IMAGING: CXR showed Basilar atelectasis and small right pleural effusion. Findings appear improved as compared to prior. PROGNOSIS: fair ACTIVITY: [As tolerated]. DIET: level 2 solids, thin liquids DISCHARGE PLAN: home DISPOSITION: , Self-Care. DISCHARGE INSTRUCTIONS: 1. Take all medications as prescribed. Seek medical attention for dyspnea, lightheadeness, or any other concerning symptoms. Call the office Saturday for a followup appt. ITEMS TO FOLLOWUP ON ON OUTPATIENT: 1. heart failure 2. atrial fibrillation DISCHARGE CONDITION: [Stable]. TIME SPENT ON DISCHARGE: Greater than 20 minutes. Vital Signs/I&Os Vital Signs Date Time Temp Pulse Resp B/P (MAP) Pulse Ox O2 Delivery O2 Flow Rate FiO2 11/29/18 12:06 96 100/60 11/29/18 12:00 96.9 18 91 11/26/18 04:30 11/25/18 20:33 Nasal Cannula I&O- Last 24 Hours up to 6 AM 11/30/18 06:00 Intake Total 240 ml Output Total 950 ml Balance -710 ml Laboratory Data Labs 24H Laboratory Tests 2 11/29/18 05:19: Nucleated Red Blood Cells % (auto) 0.0, Anion Gap 8, Glomerular Filtration Rate 59.5, Blood Urea Nitrogen 16, Creatinine 1.22, Sodium Level 138, Potassium Level 3.5, Chloride Level 96L, Carbon Dioxide Level 34H, Calcium Level 8.4L, Aspartate Amino Transf (AST/SGOT) 19, Alanine Aminotransferase (ALT/SGPT) 18, Alkaline Phosphatase 88, Total Bilirubin 1.1H, Total Protein 7.0, Albumin 3.1L, Albumin/Globulin Ratio 0.79L, Digoxin Level 0.9 CBC/BMP Laboratory Tests 11/29/18 05:19 Red Blood Count 4.59, Mean Corpuscular Volume 97.6 H, Mean Corpuscular H emoglobin 31.4, Mean Corpuscular Hemoglobin Concent 32.1, Red Cell Distribution Width 14.4, Calcium Level 8.4 L, Aspartate Amino Transf (AST/SGOT) 19, Alanine Aminotransferase (ALT/SGPT) 18, Alkaline Phosphatase 88, Total Bilirubin 1.1 H, Total Protein 7.0, Albumin 3.1 L Microbiology Microbiology 11/25/18 Gram Stain - Final, Complete 11/25/18 Sputum Culture - Final, Complete Strep Agalactiae Group B Stenotrophomonas Maltophilia Yeast Like Organism Discharge Medications Scheduled Apixaban (Eliquis) 5 Mg Tablet, 5 MG PO BID, (Reported) Cyanocobalamin (Vitamin B-12) (Vitamin B-12) 500 Mcg Tablet, 500 MCG PO DAILY, (Reported) Furosemide (Furosemide) 40 Mg Tablet, 40 MG PO DAILY, (Reported) Metoprolol Tartrate (Metoprolol Tartrate) 25 Mg Tablet, 6.25 MG PO Q6H, (Repo rted) Omeprazole (Omeprazole) 20 Mg Capsule.dr, 20 MG PO QPM, (Reported) Spironolactone (Spironolactone) 25 Mg Tablet, 12.5 MG PO DAILY, (Reported) Tamsulosin HCl (Flomax) 0.4 Mg Capsule, 0.4 MG PO QPM, (Reported) Scheduled PRN Ipratropium/Albuterol Sulfate (Iprat-Albut 0.5-3(2.5) mg/3 ml) 3 Ml Ampul.neb, 3 ML INH Q6H PRN for SOB/WHEEZING, (Reported) Allergies Coded Allergies: No Known Allergies (Unverified , 11/29/18) KENIA DOWLING DO Nov 30, 2018 02:02
== END 2018-11-29 15:20 | disposition home or self-care (01) | DRG 308 ==
LOC: EDBD 13:05 → M ED 13:05 → M ED INP 18:11 → M PCU 21:05
PROVIDERS: ADMIT Hospitalist; ATTEND Family Medicine
DX: I48.91 Unspecified atrial fibrillation (principal); I50.21 Acute systolic (congestive) heart failure; J44.9 Chronic obstructive pulmonary disease, unspecified; I50.9 Heart failure, unspecified; N40.0 Benign prostatic hyperplasia without lower urinary tract symptoms; I27.20 Pulmonary hypertension, unspecified; I35.0 Nonrheumatic aortic (valve) stenosis; R41.0 Disorientation, unspecified; N18.3 Chronic kidney disease, stage 3 (moderate); R63.0 Anorexia; Z66 Do not resuscitate; T46.0X5A Adverse effect of cardiac-stimulant glycosides and drugs of similar action, initial encounter; Z87.891 Personal history of nicotine dependence; Z86.73 Personal history of transient ischemic attack (TIA), and cerebral infarction without residual deficits; Z79.899 Other long term (current) drug therapy

== ENCOUNTER 2018-11-29 17:14 | Inpatient (IN) | payer MEDICARE ==
[~2018-11-29] VITALS: Ht 167.6 cm; Wt 55.8 kg
[~2018-11-29 17:14] MED LIST changes: +ALDA25TA2 PO; +ELIQ5TAB PO; +FURO20TA2 PO; +FURO40TA2 PO; +IPRA0.00 INH; +METO1TAB87 PO; +OMEP-218 PO; +VITA-172 PO
[2018-11-29 17:55] LABS: BASO % 0.3 % (0.0-1.0); EOS # 0.2 10^3/uL (0.0-0.50); EOS % 1.7 % (0.0-3.0); HEMATOCRIT 48.6 % (42.0-52.0); HEMOGLOBIN 15.9 g/dl (13.5-17.5); LYMPH # 2.8 10^3/uL (1.5-4.5); LYMPH % 31.5 % (24.0-44.0); MEAN CORPUSCULAR HEMOGLOBIN 33.1 pg (27.0-33.0); MEAN CORPUSCULAR HGB CONC 32.7 g/dl (32.0-36.5); MONO # 0.6 10^3/uL (0.0-0.8); MONO % 7.2 % (0.0-5.0); NEUTROPHILS # 5.2 10^3/uL (1.8-7.7); PLATELET COUNT, AUTOMATED 318 10^3/uL (150-450); RED BLOOD COUNT 4.81 10^6/uL (4.30-6.10); WHITE BLOOD COUNT 8.8 10^3/uL (4.0-10.0)
--- NOTE | 2018-11-29 18:05 | REP ---
Clinical: Cough and dyspnea. Comparison: 11/28/2018, 09/01/2018. Findings: Mediastinum and cardiac silhouette are normal. Lung ding demonstrate diffuse chronic interstitial changes and scattered fibrosis/scarring. Trace bibasilar atelectasis and small pleural effusion again noted. No pneumothorax. Skeletal structures demonstrate degenerative changes. Impression: Mild bibasilar atelectasis and suspected small right pleural effusion similar to prior examination. Electronically Signed by Ray Campbell MD 11/29/2018 05:57 P
--- NOTE | 2018-11-29 18:36 | ECGEPIP ---
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
[2018-11-29 20:12] LABS: ALBUMIN 3.4 GM/DL (3.2-5.2); ALT/SGPT 18 U/L (12-78); BILIRUBIN,DIRECT 0.4 MG/DL (0.0-0.2); BILIRUBIN,TOTAL 1.4 MG/DL (0.2-1.0); BLOOD UREA NITROGEN 18 MG/DL (7-18); CALCIUM LEVEL 8.6 MG/DL (8.8-10.2); CARBON DIOXIDE LEVEL 36 MEQ/L (21-32); CHLORIDE LEVEL 94 MEQ/L (98-107); CK-MB VALUE MASS < 1.0 NG/ML (<3.6); CPK CREATINE PHOSPHOKINASE 29 U/L (39-308); CREATININE FOR GFR 1.42 MG/DL (0.70-1.30); GLUCOSE, FASTING 127 MG/DL (70-100); MB/CK RELATIVE INDEX 3.45 (< OR =4); NT-PRO BNP 18447 PG/ML (<450); POTASSIUM SERUM 3.7 MEQ/L (3.5-5.1); SODIUM LEVEL 138 MEQ/L (136-145); TOTAL PROTEIN 7.2 GM/DL (6.4-8.2); TROPONIN I 0.04 NG/ML (< 0.10)
[2018-11-29] MEDS ORDERED: ELIQ5TAB PO (20:56)
[2018-11-29] MEDS ORDERED: SPIR-10 PO (20:56)
[2018-11-29] MEDS ORDERED: VITA500T40 PO (20:56)
[2018-11-29] MEDS ORDERED: FURO40TA2 PO (20:56)
[2018-11-29] MEDS ORDERED: METO1TAB87 PO (20:56)
[2018-11-29] MEDS ORDERED: IPRA0.00 INH (20:59)
[2018-11-29] MEDS ORDERED: ACETAMINOPHEN TAB 650MG DOSE (2X325MG) PO PRN (21:00)
[2018-11-29] MEDS ORDERED: MAALOX 30 ML SUSP *UDC PO PRN (21:00)
[2018-11-29] MEDS ORDERED: MOM 30ML SUSPENSION UDC PO PRN (21:00)
[2018-11-29] MEDS ORDERED: TAMSULOSIN 0.4 MG CAP PO SCH (21:00)
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
[2018-11-29] MEDS ORDERED: NS 500 ML IV SCH (21:15)
[2018-11-29] MEDS ORDERED: IPRATROPIUM 0.5MG/ALBUTEROL 2.5MG INH SOL UD 3ML (DUONEB)(J7620) INH PRN (21:15)
[2018-11-29] MEDS ORDERED: OMEPRAZOLE 20 MG CAP PO ONE (21:15)
[2018-11-29 22:05] VITALS: BP 116/75
[2018-11-29] MEDS: DOCUSATE SODIUM 100 MG CAP PO SCH (22:48)
[2018-11-29] MEDS: APIXABAN 5 MG TAB (ELIQUIS) PO SCH (22:49)
[2018-11-30] VITALS (32 sets, daily range): BP systolic 72–108; BP diastolic 49–76; O2SAT 92–100
[2018-11-30] MEDS ORDERED: SODIUM CHLORIDE 0.9% 1000ML IV ONE (04:30)
[2018-11-30] MEDS: METOPROLOL TART 12.5 MG PER 1/2 TAB PO SCH ×5 (06:00→23:54)
[2018-11-30 07:47] LABS: HEMATOCRIT 46.5 % (42.0-52.0); HEMOGLOBIN 14.7 g/dl (13.5-17.5); MEAN CORPUSCULAR HGB CONC 31.6 g/dl (32.0-36.5); MEAN CORPUSCULAR VOLUME 101.1 fl (80.0-96.0); PLATELET COUNT, AUTOMATED 265 10^3/uL (150-450); WHITE BLOOD COUNT 8.3 10^3/uL (4.0-10.0)
[2018-11-30 08:16] LABS: ALBUMIN 3.2 GM/DL (3.2-5.2); BILIRUBIN,TOTAL 1.5 MG/DL (0.2-1.0); CALCIUM LEVEL 8.1 MG/DL (8.8-10.2); CREATININE FOR GFR 1.28 MG/DL (0.70-1.30); GLOMERULAR FILTRATION RATE 56.3 (>35); MAGNESIUM LEVEL 2.1 MG/DL (1.8-2.4); POTASSIUM SERUM 3.4 MEQ/L (3.5-5.1); TOTAL PROTEIN 6.9 GM/DL (6.4-8.2)
[2018-11-30] MEDS: DOCUSATE SODIUM 100 MG CAP PO SCH ×2 (08:17→20:12)
[2018-11-30] MEDS: SPIRONOLACTONE 12.5MG PER 1/2 TABLET PO SCH (08:17)
[2018-11-30] MEDS: APIXABAN 5 MG TAB (ELIQUIS) PO SCH ×2 (08:17→20:12)
[2018-11-30] MEDS: NS 1,000 ML IV SCH ×2 (10:46→17:33)
[2018-11-30] MEDS ORDERED: IPRATROPIUM 0.5MG/ALBUTEROL 2.5MG INH SOL UD 3ML (DUONEB)(J7620) INH PRN (15:45)
[2018-11-30] MEDS ORDERED: POTASSIUM CHLORIDE 10 MEQ SR TABLET PO ONE (17:00)
[2018-11-30] MEDS: guaiFENesin 200 MG TAB PO SCH ×3 (17:27→23:54)
[2018-11-30] MEDS ORDERED: NS 1,000 ML IV ONE (18:30)
--- NOTE | 2018-11-30 19:09 | REP ---
Clinical: Heart failure. Comparison: 12/09/2018. Findings: Mediastinum and cardiac silhouette are within normal limits and stable. Lung ding demonstrate diffuse chronic stable interstitial changes and improved aeration with decreased basilar atelectasis as compared to prior examination. No definite effusion. No pneumothorax. Skeletal structures stable. Impression: Chronic stable changes. Improved aeration with significantly decreased basilar atelectasis as compared to prior. Electronically Signed by Ray Campbell MD 11/30/2018 07:01 P
[2018-11-30 20:01] LABS: CK-MB VALUE MASS 1.5 NG/ML (<3.6); MB/CK RELATIVE INDEX 6.82 (< OR =4); TROPONIN I 0.04 NG/ML (< 0.10)
--- NOTE | 2018-11-30 23:45 | IPNPDOC ---
Subjective Date Seen The patient was seen on 11/30/18. Subjective Chief Complaint/HPI Patient denied complaints, but spent most of the day with a systolic BP around 90. He rested for most of the day but was alert and oriented. This evening his BP dropped to the 70s systolic, and he was transferred to the ICU. Constitutional: Denies: Chills, Fever Skin: Denies: Rash Pulmonary: Denies: Dyspnea, Cough Cardiovascular: Denies: Chest Pain, Palpitations Gastrointestinal: Denies: Nausea, Vomiting, Abdominal Pain, Diarrhea, C onstipation Objective Physical Examination General Exam: Positive: Alert, Cooperative, Other (though hypotensive, he appeared comfortable) Eye Exam: Positive: PERRLA, Conjunctiva & lids normal, EOMI ENT Exam: Positive: Atraumatic, Mucous membr. moist/pink, Pharynx Normal Neck Exam: Positive: Supple, +2 carotid pulse wo bruit, Other (no JVD) Chest Exam: Positive: Clear to auscultation, Normal air movement, Diminished; Negative: Rales, Rhonchi, Wheezing Heart Exam: Positive: Rate Normal, Regular Rhythm, Murmurs Telemetry: Positive: Sinus, Other Telemetry: (EKG shows Sinus with RBBB) Abdomen Exam: Positive: Normal bowel sounds, Soft (NT ND) Extremity Exam: Positive: Cyanosis, Normal pulses; Negative: Clubbing, Edema, Tenderness, Swelling Skin Exam: Positive: Other skin issue (acrocyanosis to hands/feet) Neuro Exam: Positive: Normal Speech, Other (chronic subtle left sided weakness, moves all extremities with strength 4/5 for upper and lower extremities) Psych Exam: Positive: Mental status NL, Mood NL, Memory Intact, Oriented x 3 Assessment /Plan Problems (1) Hypotension Problem Text: Patient was gently hydrated throughout the day, which kept his blood pressures appropriate, but became more hypotensive by evening. After rec eiving a 1 L bolus without improvement and with some crackles, critical care was consulted. BP then improved sufficiently to be monitored for the time being; may tolerate a small bolus, or may require line placement and pressor. (2) Congestive heart failure Permanent Comment: Echocardiogram 11/2018: Borderline concentric left ventricle hypertrophy with at least mild global hypokinesis. Mild to moderately dilated left atrium. Unable to comment on LV diastolic function in light of atrial fibrillation, but current estimated mean left atrial pressure appeared to be elevated. Moderately dilated right heart chambers with marked right ventricular free wall hypokinesis and Doppler evidence of at least moderate to moderately severe pulmonary hypertension. Prominently dilated IVC with reduced respiratory collapse in keeping with elevated central venous pressure/right heart failure. Moderately severe thickening of three equal size aortic cusps with moderate aortic stenosis. Peak or mean transvalvular gradient was relatively soft, yet his ejection fraction is reduced, underestimating the degree of aortic stenosis. Very mild aortic insufficiency. Normal aortic dimensions Severe mitral annular calcification with thickening of the mitral leaflets but no LV inflow tract obstruction and only mild insufficiency. Normal appearing tricuspid valve with at least mild - moderate insufficiency. Last Edited By: Kenia Dowling DO on Nov 27, 2018 01:45 Status: Chronic (3) DNR (do not resuscitate) Problem Text: Reviewed code status. He affirms DNR, DNI, would accept central line and pressors. Plan/VTE VTE Prophylaxis Ordered?: Yes VTE Exclusion Pharmacological: Other (on eliquis) VS, I&O, 24H, Fishbone Vital Signs/I&O Vital Signs Date Time Temp Pulse Resp B/P (MAP) Pulse Ox O2 Delivery O2 Flow Rate FiO2 11/30/18 22:30 89 96/56 (69) 86 2.0 11/30/18 21:35 Room Air 11/30/18 20:00 98.0 18 I&O- Last 24 Hours up to 6 AM 11/30/18 06:00 Intake Total 100 ml Output Total 0 ml Balance 100 ml Laboratory Data 24H LABS Laboratory Tests 2 11/30/18 07:32: Nucleated Red Blood Cells % (auto) 0.0, Anion Gap 6L, Glomerular Filtration Rate 56.3, Blood Urea Nitrogen 16, Creatinine 1.28, Sodium Level 138, Potassium Level 3.4L, Chloride Level 98, Carbon Dioxide Level 34H, Calcium Level 8.1L, Aspartate Amino Transf (AST/SGOT) 16, Alanine Aminotransferase (ALT/SGPT) 16, Alkaline Phosphatase 81, Total Bilirubin 1.5H, Total Protein 6.9, Albumin 3.2, Magnesium Level 2.1, Albumin/Globulin Ratio 0.86L 11/30/18 14:50: Bedside Glucose (Misc Panel) 135H 11/30/18 19:04: Lactic Acid Level 1.6, Total Creatine Kinase 22L, Creatine Kinase MB 1.5, Creatine Kinase MB Relative Index 6.82H, Troponin I 0.04, MY-Zan-J-Type Natriuretic Peptide 72022S CBC/BMP Laboratory Tests 11/30/18 07:32 Red Blood Count 4.60, Mean Corpuscular Volume 101.1 H, Mean Corpuscular Hemoglobin 32.0, Mean Corpuscular Hemoglobin Concent 31.6 L, Red Cell Distribution Width 14.4, Calcium Level 8.1 L, Aspartate Amino Transf (AST/SGOT) 16, Alanine Aminotransferase (ALT/SGPT) 16, Alkaline Phosphatase 81, Total Bilirubin 1.5 H, Total Protein 6.9, Albumin 3.2 Microbiology Microbiology 11/30/18 Blood Culture, Received Pending 11/30/18 Blood Culture, Received Pending KENIA DOWLING DO Nov 30, 2018 23:45
[2018-12-01] VITALS (23 sets, daily range): BP systolic 73–119; BP diastolic 50–88; O2SAT 88–100
[2018-12-01] MEDS: guaiFENesin 200 MG TAB PO SCH ×5 (04:21→20:14)
[2018-12-01] MEDS: NS 1,000 ML IV SCH ×3 (04:42→23:29)
[2018-12-01] MEDS: METOPROLOL TART 12.5 MG PER 1/2 TAB PO SCH ×3 (05:11→17:06)
--- NOTE | 2018-12-01 07:20 | CR ---
DATE OF CONSULTATION: 11/30/2018 CHIEF COMPLAINT: I was asked by Dr. Novoa to evaluate Mr. Roy for hypotension. HISTORY OF PRESENT ILLNESS: Mr. Roy is an 88 male who is admitted originally on 11/25/2018 with new onset atrial fibrillation with rapid ventricular response. At that time he was short of breath, coughing and had orthopnea and congestive heart failure (CHF). He was diuresed, started on anticoagulation and rate control. He had been on digoxin but had toxicity and that medication was discontinued. He appeared to do best on metoprolol every 6 hours dosing and a low dose of spironolactone. He had passed physical therapy and was discharged on 11/29. He got home but had difficulty getting out of his car. They tried to get some assistance for him to get in the house but his legs felt weak and he could not get into his residence so he came back to the hospital. He told his that he felt dizzy. He also felt weak and had increased shortness of breath and he describes possible chest discomfort. In reviewing his vital signs when he returned to the emergency department, he had normal blood pressure and his saturations were acceptable on room air. Over the course of the day, his blood pressure has vacillated and he was moved to the intensive care unit earlier this evening. He had received a fluid bolus of 100 mL last night and 1 liter today at the time of transfer. In regards to his medications he did not receive his metoprolol today and received only one dose of his spironolactone this morning. No clear etiology for his difficulties has been identified. When I arrived to the intensive care unit his mean arterial pressure (MAP) was 87. In reviewing his vitals for the day most of his MAPs have been above 65 though there are a few that were in the high 50s. He is mentating well. He confirms a history as noted above. At the present time he denies shortness of breath. No cough. No orthopnea. No lower extremity edema. No further chest discomfort. No nausea or emesis. No diarrhea. He does not like the hospital food and his fed him baby food today. He did not cough after eating food. No fevers, chills or night sweats. He no longer has dizziness though he is lying in bed. He is anxious to go home. ALLERGIES: NO KNOWN DRUG ALLERGIES. MEDICATIONS ON ADMISSION: - Eliquis 5 mg by mouth twice a day - vitamin B12 500 mcg by mouth daily - furosemide 40 mg by mouth daily - DuoNeb every six hour as needed - metoprolol 6.25 mg by mouth every six hours - omeprazole 20 mg by mouth nightly - spironolactone 12.5 mg by mouth daily - Flomax 0.5 mg by mouth nightly PAST MEDICAL HISTORY: 1. Atrial fibrillation, new onset 11/2018. 2. Moderate to moderately severe pulmonary hypertension (moderate to severe by transthoracic electrocardiogram (TTE) 11/2018). 3. Moderate aortic stenosis. 4. History of cerebral vascular accident (CVA). 5. Nonischemic cardiomyopathy with an ejection fraction (EF) around 44-50%. 6. Moderately dilated right heart chambers with marked right ventricular free wall hypokinesis. 7. He is status post abdominal aortic aneurysm (AAA) repair. 8. Status post carotid stent. SOCIAL HISTORY: Mr. Roy is a former smoker. I do not know how long he smoked. He has approximately two glasses of wine per day. He is and lives with his . He had a traumatic childhood in that he is Holocaust survivor. He is originally from [place]. FAMILY HISTORY: Unknown. REVIEW OF SYSTEMS: Per history of present illness (HPI) pertinent. REVIEW OF SYSTEMS: Negative. PHYSICAL EXAMINATION: General: Mr. Roy is lying in bed in no acute distress. He is lying approximately a 20-30 degrees angle. In complete full sentences. No cough evaluation. Vital signs: Blood pressure 105/75 with an MAP of 85, respiratory rate 24, pulse 95 and irregular, SPO2 100 on an SPO2 20. HEENT: Anicteric. Nares: Patent bilaterally. Oropharynx clear, no lesions. Neck: Supple, without jugular venous distention (JVD). Elevated external jugulars, trachea is midline without thyromegaly or masses. Lymphs: Without cervical or supraclavicular lymphadenopathy. Chest: Increased AP diameter. Lungs: Symmetric excursion. Good air entry, minimal bibasilar crackles. No wheeze or rhonchi. Normal (inspiration to expiration (I:E). No accessory muscle use or retractions. Cardiovascular: Regular regular, normal S1-S2, no murmur, rub or gallop appreciated distant. Abdomen: Positive bowel sounds, soft, nondistended, nontender, no hepatosplenomegaly or masses appreciated. Extremities: Mildly cool, no cyanosis, trace clubbing, acrocyanosis (chronic) perhaps trace clubbing, no significant edema. Palpable pedal pulses bilaterally. Capillary refill 2-3 seconds. Neurologic: Alert, awake and oriented times three. Psychiatric: Appropriate affect. LABORATORY DATA: CBC this morning showed a hemoglobin 14.7, hematocrit 46.5, platelet count 265,000, white blood cell count 8300. Chemistry shows sodium of 138, potassium 3.4, chloride 98, bicarbonate 34, anion gap 6, BUN 16, creatinine 1.3, glucose 108, calcium 8.1, magnesium 2.1, bilirubin 1.5, AST 16, ALT 16, alkaline phosphatase 81,total protein6.9, albumin 3.2. Additional labs from admission showed a TSH of 1.69. Labs shown on transfer to the intensive care unit including a CK of 22, and a CK MB of 1.5, troponin I is 0.04, and BNP 10,033 (decreased from 18,447 on admission) and a lactic acid of 1.6. IMAGING: I reviewed both his admission chest x-ray and chest x-ray taken upon transfer to the intensive care unit. Both x-rays showed normal cardiac silhouette and pulmonary vascular shadows. There remained bilateral interstitial infiltrates with a small region of linear atelectasis or fluid in the right midlung. Normal-appearing costophrenic angles. No consolidated regions. No change between the two x-rays nor the two view chest x-ray taken on 11/28/2018. Today's in and out was 2010 in and 600 out making him positive 1410. Weight 58.4 kilograms. IMPRESSION: 1. Hypotension. For most of the day and at the present time is mean arterial pressures (MAPs) have been reasonable. He had similar fluctuations during his earlier admission. Based on his examination, he appears euvolemic. He does not have any findings or source to consider sepsis. A myocardial event is always in the differential but at least the first cardiac marker and last night's marker is normal. No findings suggestive of decompensated right heart failure. He appears to have end organ perfusion. 2. Dizziness- weakness- shortness of breath and perhaps chest discomfort after discharge here. Based on his baseline heart rate in the high 90s when he is lying down, question if he does not flip into rapid ventricular response (RVR) with activity. It is unusual to have that quick of a decompensation unless it is a change in rhythm, myocardial event (as noted above) is ruling out and he does not give a history strongly suggestive of pulmonary embolus, sepsis (no findings to suggest that), aspiration (no history or findings to suggest that) or fluids/blood loss. 3. Atrial fibrillation, recent onset. 4. History of congestive heart failure (CHF). 5. Pulmonary hypertension, moderate to moderately severe. 6. Chronic kidney disease stage III. 7. Nonischemic cardiomyopathy. 8. Moderate aortic stenosis. 9. History of cerebral vascular accident. RECOMMENDATIONS: 1. At the present time I do not feel he needs any more fluid resuscitation nor does he require vasopressor. 2. At the present I do not feel he needs central access but would be happy to return should he require vasopressor support.. 3. He may require further adjustment on the combination of his diuresis and rate control, particularly given this pulmonary hypertension. 4. I am not certain whether physical therapy worked with him with steps, but he does have to two steps in order to get into his house. It sounds as if he walks up one step and has a landing and then has to get up to the other step to get inside. Critical care time 35 minutes not including procedure time. ROGELIOD
[2018-12-01 08:35] LABS: BLOOD UREA NITROGEN 10 MG/DL (7-18); CALCIUM LEVEL 8.2 MG/DL (8.8-10.2); CARBON DIOXIDE LEVEL 31 MEQ/L (21-32); CHLORIDE LEVEL 105 MEQ/L (98-107); CREATININE FOR GFR 0.97 MG/DL (0.70-1.30); GLOMERULAR FILTRATION RATE > 60.0 (>35); GLUCOSE, FASTING 93 MG/DL (70-100); POTASSIUM SERUM 3.6 MEQ/L (3.5-5.1); SODIUM LEVEL 139 MEQ/L (136-145)
[2018-12-01] MEDS: DOCUSATE SODIUM 100 MG CAP PO SCH ×2 (08:55→20:15)
[2018-12-01] MEDS: APIXABAN 5 MG TAB (ELIQUIS) PO SCH ×2 (08:55→20:15)
[2018-12-01] MEDS: SPIRONOLACTONE 12.5MG PER 1/2 TABLET PO SCH (09:00)
--- NOTE | 2018-12-01 09:29 | IPNPDOC ---
Subjective Date Seen The patient was seen on 12/01/18. Subjective Chief Complaint/HPI no pain, says he is waiting for his to bring him food that he likes. Constitutional: Denies: Chills ENT: Denies: Head Aches Cardiovascular: Denies: Chest Pain, Palpitations Gastrointestinal: Denies: Nausea, Abdominal Pain Genitourinary: Reports: Frequency (reports 4x/night nocturia before coming to hospital, suggests incomplete emptying.) Psych: Reports: Mood Normal Objective Physical Examination General Exam: Positive: Alert, Cooperative, Other (though hypotensive, he appeared comfortable) Eye Exam: Positive: PERRLA, Conjunctiva & lids normal, EOMI ENT Exam: Positive: Atraumatic, Mucous membr. moist/pink, Pharynx Normal Neck Exam: Positive: Supple, +2 carotid pulse wo bruit, Other (no JVD); Negative: JVD (No JVD and minimal reflux observed.) Chest Exam: Positive: Clear to auscultation, Normal air movement, Diminished; Negative: Rales, Rhonchi, Wheezing Heart Exam: Positive: Rate Normal, Regular Rhythm, Murmurs Telemetry: Positive: Sinus, Other Telemetry: (EKG shows Sinus with RBBB) Abdomen Exam: Positive: Normal bowel sounds, Soft (NT ND) Extremity Exam: Positive: Cyanosis, Normal pulses; Negative: Clubbing, Edema, Tenderness, Swelling Skin Exam: Positive: Nl turgor and temperature, Other skin issue (acrocyanosis to hands/feet) Neuro Exam: Positive: Normal Speech, Other (chronic subtle left sided weakness, moves all extremities with strength 4/5 for upper and lower extremities) Psych Exam: Positive: Mental status NL, Mood NL, Memory Intact, Oriented x 3 Assessment /Plan Problems (1) Hypotension Problem Text: 12/01/18: continues to demonstrate low systolic pressures when resting overnight with systolics in 70's. With stimulation he improves into low 100's, however. Urine output remains fair, although he has significant residual volumes based on post voiding bladder scan this am. Not overloaded with volume yet, so continue IV NS for now. Dr. Russell saw patient yesterday and found no definite need for pressors, so will move to PCU. Patient was gently hydrated throughout the day, which kept his blood pressures a ppropriate, but became more hypotensive by evening. After receiving a 1 L bolus without improvement and with some crackles, critical care was consulted. BP then improved sufficiently to be monitored for the time being; may tolerate a small bolus, or may require line placement and pressor. (2) Congestive heart failure Permanent Comment: Echocardiogram 11/2018: Borderline concentric left ventricle hypertrophy with at least mild global hypokinesis. Mild to moderately dilated left atrium. Unable to comment on LV diastolic function in light of atrial fibrillation, but current estimated mean left atrial pressure appeared to be elevated. Moderately dilated right heart chambers with marked right ventricular free wall hypokinesis and Doppler evidence of at least moderate to moderately severe pulmonary hypertension. Prominently dilated IVC with reduced respiratory collapse in keeping with elevated central venous pressure/right heart failure. Moderately severe thickening of three equal size aortic cusps with moderate aortic stenosis. Peak or mean transvalvular gradient was relatively soft, yet his ejection fraction is reduced, underestimating the degree of aortic stenosis. Very mild aortic insufficiency. Normal aortic dimensions Severe mitral annular calcification with thickening of the mitral leaflets but no LV inflow tract obstruction and only mild insufficiency. Normal appearing tricuspid valve with at least mild - moderate insufficiency. Last Edited By: Selena Novoa DO on Nov 27, 2018 01:45 Status: Chronic Problem Text: describes poor po intake for many days before previous hospital stay. Likely comes in somewhat volume compromised with his Right sided failure would lead to hypotension. Will continue IV fluids for now, monitor for increasing O2 requirements. (3) DNR (do not resuscitate) Status: Chronic Problem Text: Reviewed code status. He affirms DNR, DNI, would accept central line and pressors. Order written. Plan/VTE VTE Prophylaxis Ordered?: Yes VTE Exclusion Pharmacological: Other (on eliquis) Plan Advance Directives: DNR VS, I&O, 24H, Fishbone Vital Signs/I&O Vital Signs Date Time Temp Pulse Resp B/P (MAP) Pulse Ox O2 Delivery O2 Flow Rate FiO2 12/01/18 06:00 81 95/56 (69) 92 2.0 12/01/18 06:00 Nasal Cannula 12/01/18 04:00 97.9 18 I&O- Last 24 Hours up to 6 AM 12/01/18 06:00 Intake Total 2630 ml Output Total 1225 ml Balance 1405 ml Laboratory Data 24H LABS Laboratory Tests 2 11/30/18 14:50: Bedside Glucose (Misc Panel) 135H 11/30/18 19:04: Lactic Acid Level 1.6, Total Creatine Kinase 22L, Creatine Kinase MB 1.5, Creatine Kinase MB Relative Index 6.82H, Troponin I 0.04, IO-Ipv-G-Type Natriuretic Peptide 29632C 12/01/18 08:02: Anion Gap 3L, Glomerular Filtration Rate > 60.0, Blood Urea Nitrogen 10, Creatinine 0.97, Sodium Level 139, Potassium Level 3.6, Chloride Level 105, Carbon Dioxide Level 31, Calcium Level 8.2L CBC/BMP Laboratory Tests 12/01/18 08:02 Calcium Level 8.2 L Microbiology Microbiology 11/30/18 Blood Culture, Received Pending 11/30/18 Blood Culture, Received Pending Trey Finn MD Dec 01, 2018 09:29
--- NOTE | 2018-12-01 09:33 | ECGEPIP ---
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
[2018-12-01 13:13] LABS: FOLATE 14.4 NG/ML (>5.4)
[2018-12-02] VITALS (15 sets, daily range): BP systolic 97–154; BP diastolic 54–72; O2SAT 82–98
[2018-12-02] MEDS: guaiFENesin 200 MG TAB PO SCH ×7 (04:24→23:58)
[2018-12-02 04:55] LABS: HEMATOCRIT 43.5 % (42.0-52.0); HEMOGLOBIN 13.6 g/dl (13.5-17.5); MEAN CORPUSCULAR HEMOGLOBIN 31.3 pg (27.0-33.0); MEAN CORPUSCULAR HGB CONC 31.3 g/dl (32.0-36.5); MEAN CORPUSCULAR VOLUME 100.2 fl (80.0-96.0); PLATELET COUNT, AUTOMATED 256 10^3/uL (150-450); RED BLOOD COUNT 4.34 10^6/uL (4.30-6.10)
[2018-12-02 05:23] LABS: BLOOD UREA NITROGEN 10 MG/DL (7-18); CALCIUM LEVEL 7.8 MG/DL (8.8-10.2); CARBON DIOXIDE LEVEL 28 MEQ/L (21-32); CHLORIDE LEVEL 105 MEQ/L (98-107); CREATININE FOR GFR 0.96 MG/DL (0.70-1.30); GLOMERULAR FILTRATION RATE > 60.0 (>35); GLUCOSE, FASTING 100 MG/DL (70-100); POTASSIUM SERUM 3.8 MEQ/L (3.5-5.1); SODIUM LEVEL 139 MEQ/L (136-145)
[2018-12-02] MEDS ORDERED: FUROSEMIDE 20 MG/2 ML VIAL (J1940) IV ONE (06:00)
[2018-12-02] MEDS: METOPROLOL TART 12.5 MG PER 1/2 TAB PO SCH ×5 (06:00→23:58)
[2018-12-02] MEDS: DOCUSATE SODIUM 100 MG CAP PO SCH ×2 (08:20→20:05)
[2018-12-02] MEDS: SPIRONOLACTONE 12.5MG PER 1/2 TABLET PO SCH (08:20)
[2018-12-02] MEDS: APIXABAN 5 MG TAB (ELIQUIS) PO SCH ×2 (08:20→20:05)
--- NOTE | 2018-12-02 09:10 | REP ---
Chest x-ray: Two views. History: Hypoxia. CHF. Comparison study: November 30, 2018. Findings: There is patchy bibasilar interstitial fibrosis again noted. No acute infiltrate is seen. Heart is not enlarged. The aorta is somewhat tortuous and calcific. Oxygen delivery tubing and EKG monitoring electrodes are seen. No significant bony abnormality is observed. Impression: Patchy bibasilar interstitial fibrosis. No acute infiltrate. Possible slight pleural angle blunting on the lateral radiograph bilaterally. Electronically Signed by Robert Johnson MD 12/02/2018 04:44 P
--- NOTE | 2018-12-02 09:45 | IPNPDOC ---
Subjective Date Seen The patient was seen on 12/02/18. Subjective Chief Complaint/HPI "I'm back to normal" ENT: Denies: Head Aches Pulmonary: Reports: Cough (somewhat productivde); Denies: Pleuritic Chest Pain Cardiovascular: Denies: Chest Pain, Palpitations Gastrointestinal: Denies: Nausea, Abdominal Pain Endocrine: Reports: Polyuria (reports increased urination since this am, after IV furosemide dose) Neurological: Denies: Weakness Psych: Reports: Mood Normal Objective Physical Examination General Exam: Positive: Alert, Cooperative, Other (though hypotensive, he appeared comfortable) Eye Exam: Positive: PERRLA, Conjunctiva & lids normal, EOMI ENT Exam: Positive: Atraumatic, Mucous membr. moist/pink, Pharynx Normal Neck Exam: Positive: Supple, +2 carotid pulse wo bruit, Other (no JVD); Negative: JVD (No JVD and minimal reflux observed.) Chest Exam: Positive: Normal air movement, Rales (faint bibasilar), Rhonchi (scattered rhonchi that clear with cough, but patient tolerating supine position), Diminished; Negative: Wheezing Heart Exam: Positive: Rate Normal, Regular Rhythm, Murmurs Telemetry: Positive: Sinus, Other Telemetry: (EKG shows Sinus with RBBB) Abdomen Exam: Positive: Normal bowel sounds, Soft (NT ND); Negative: Tenderness Extremity Exam: Positive: Cyanosis, Normal pulses; Negative: Clubbing, Edema, Tenderness, Swelling Skin Exam: Positive: Nl turgor and temperature, Other skin issue (acrocyanosis to hands/feet) Neuro Exam: Positive: Normal Speech, Other (chronic subtle left sided weakness, moves all extremities with strength 4/5 for upper and lower extremities) Psych Exam: Positive: Mental status NL, Mood NL, Memory Intact, Oriented x 3 Assessment /Plan Problems (1) Congestive heart failure Permanent Comment: Echocardiogram 11/2018: Borderline concentric left ventricle hypertrophy with at least mild global hypokinesis. Mild to moderately dilated left atrium. Unable to comment on LV diastolic function in light of atrial fibrillation, but current estimated mean left atrial pressure appeared to be elevated. Moderately dilated right heart chambers with marked right ventricular free wall hypokinesis and Doppler evidence of at least moderate to moderately severe pulmonary hypertension. Prominently dilated IVC with reduced respiratory collapse in keeping with elevated central venous pressure/right heart failure. Moderately severe thickening of three equal size aortic cusps with moderate aortic stenosis. Peak or mean transvalvular gradient was relatively soft, yet his ejection fraction is reduced, underestimating the degree of aortic stenosis. Very mild aortic insufficiency. Normal aortic dimensions Severe mitral annular calcification with thickening of the mitral leaflets but no LV inflow tract obstruction and only mild insufficiency. Normal appearing tricuspid valve with at least mild - moderate insufficiency. Last Edited By: Selena Novoa DO on Nov 27, 2018 01:45 Status: Chronic Problem Text: 12/02: overnight, he developed dyspnea with rales. Rx lasix 20, feels better now. CXR consistent with pulmonary edema and increased interstitial markings compared to previous image. IV fluids stopped, started spironolactone. describes poor po intake for many days before previous hospital stay. Likely comes in somewhat volume compromised with his Right sided failure would lead to hypotension. Will continue IV fluids for now, monitor for increasing O2 requirements. (2) Hypotension Problem Text: 12/02/: pressures were better this am as he entered fluid overload state before IV lasix given. 12/01/18: continues to demonstrate low systolic pressures when resting overnight with systolics in 70's. With stimulation he improves into low 100's, however. Urine output remains fair, although he has significant residual volumes based on post voiding bladder scan this am. Not overloaded with volume yet, so continue IV NS for now. Dr. Russell saw patient yesterday and found no definite need for pressors, so will move to PCU. Patient was gently hydrated throughout the day, which kept his blood pressures appropriate, but became more hypotensive by evening. After receiving a 1 L bolus without improvement and with some crackles, critical care was consulted. BP then improved sufficiently to be monitored for the time being; may tolerate a small bolus, or may require line placement and pressor. (3) DNR (do not resuscitate) Status: Chronic Problem Text: 12/02: patient reaffirms that his goal is to go home and stay there. discussed option of Hospice. Reviewed code status. He affirms DNR, DNI, would accept central line and pressors. Order written. Plan/VTE VTE Prophylaxis Ordered?: Yes VTE Exclusion Pharmacological: Other (on eliquis) Plan Advance Directives: DNR VS, I&O, 24H, Fishbone Vital Signs/I&O Vital Signs Date Time Temp Pulse Resp B/P (MAP) Pulse Ox O2 Delivery O2 Flow Rate FiO2 12/02/18 08:00 97.1 92 20 148/67 (94) 96 2.0 12/02/18 04:00 Nasal Cannula I&O- Last 24 Hours up to 6 AM 12/02/18 06:00 Intake Total 1450 ml Output Total 2290 ml Balance -840 ml Laboratory Data 24H LABS Laboratory Tests 2 12/01/18 12:19: Vitamin B12 Level 852, Folate 14.4 12/02/18 04:39: Nucleated Red Blood Cells % (auto) 0.0, Anion Gap 6L, Glomerular Filtration Rate > 60.0, Blood Urea Nitrogen 10, Creatinine 0.96, Sodium Level 139, Potassium Level 3.8, Chloride Level 105, Carbon Dioxide Level 28, Calcium Level 7.8L CBC/BMP Laboratory Tests 12/02/18 04:39 Red Blood Count 4.34, Mean Corpuscular Volume 100.2 H, Mean Corpuscular Hemoglobin 31.3, Mean Corpuscular Hemoglobin Concent 31.3 L, Red Cell Distribution Width 14.2, Calcium Level 7.8 L Microbiology Microbiology 11/30/18 Blood Culture - Preliminary, Resulted No growth after 24 hours . All specim... 11/30/18 Blood Culture - Preliminary, Resulted No growth after 24 hours . All specim... Trey Finn MD Dec 02, 2018 09:45
[2018-12-02] MEDS ORDERED: SLF 3 ML SYR IV PRN (16:45)
[2018-12-02] MEDS: SLF 3 ML SYR IV SCH (21:54)
[2018-12-03] VITALS (18 sets, daily range): BP systolic 112–141; BP diastolic 55–92; O2SAT 92–100
[2018-12-03] MEDS: guaiFENesin 200 MG TAB PO SCH ×5 (03:51→19:53)
[2018-12-03 05:12] LABS: HEMATOCRIT 45.1 % (42.0-52.0); HEMOGLOBIN 14.4 g/dl (13.5-17.5); MEAN CORPUSCULAR HEMOGLOBIN 32.5 pg (27.0-33.0); MEAN CORPUSCULAR HGB CONC 31.9 g/dl (32.0-36.5); MEAN CORPUSCULAR VOLUME 101.8 fl (80.0-96.0); PLATELET COUNT, AUTOMATED 231 10^3/uL (150-450); RED BLOOD COUNT 4.43 10^6/uL (4.30-6.10); WHITE BLOOD COUNT 9.5 10^3/uL (4.0-10.0)
[2018-12-03 05:27] LABS: BLOOD UREA NITROGEN 15 MG/DL (7-18); CALCIUM LEVEL 8.6 MG/DL (8.8-10.2); CARBON DIOXIDE LEVEL 27 MEQ/L (21-32); CHLORIDE LEVEL 102 MEQ/L (98-107); CREATININE FOR GFR 1.04 MG/DL (0.70-1.30); GLOMERULAR FILTRATION RATE > 60.0 (>35); GLUCOSE, FASTING 97 MG/DL (70-100); POTASSIUM SERUM 3.9 MEQ/L (3.5-5.1); SODIUM LEVEL 136 MEQ/L (136-145)
[2018-12-03] MEDS: METOPROLOL TART 12.5 MG PER 1/2 TAB PO SCH ×3 (05:52→17:36)
[2018-12-03] MEDS: SLF 3 ML SYR IV SCH ×3 (05:53→22:34)
[2018-12-03] MEDS: SPIRONOLACTONE 12.5MG PER 1/2 TABLET PO SCH (08:21)
[2018-12-03] MEDS: APIXABAN 5 MG TAB (ELIQUIS) PO SCH ×2 (08:21→19:53)
[2018-12-03] MEDS: DOCUSATE SODIUM 100 MG CAP PO SCH ×2 (08:21→19:53)
--- NOTE | 2018-12-03 08:47 | IPNPDOC ---
Subjective Date Seen The patient was seen on 12/03/18. Subjective Chief Complaint/HPI Feels better - denies SOB. Has a cough Constitutional: Denies: Chills, Fever Pulmonary: Reports: Cough; Denies: Dyspnea Cardiovascular: Denies: Chest Pain, Palpitations Gastrointestinal: Denies: Nausea, Vomiting, Abdominal Pain, Diarrhea, Constipation Objective Physical Examination General Exam: Positive: Alert, No Acute Distress ENT Exam: Positive: Mucous membr. moist/pink Neck Exam: Negative: JVD Chest Exam: Positive: Normal air movement, Diminished, Other (rattling cough); Negative: Rales, Rhonchi, Wheezing Heart Exam: Positive: Rate Normal, Regular Rhythm, Murmurs Telemetry: Positive: Sinus, Other Telemetry: (EKG shows Sinus with RBBB) Abdomen Exam: Positive: Normal bowel sounds, Soft; Negative: Tenderness Extremity Exam: Negative: Edema Skin Exam: Positive: Nl turgor and temperature Neuro Exam: Positive: Normal Speech Psych Exam: Positive: Mental status NL, Mood NL Assessment /Plan Problems (1) Congestive heart failure Permanent Comment: Echocardiogram 11/2018: Borderline concentric left ventricle hypertrophy with at least mild global hypokinesis. Mild to moderately dilated left atrium. Unable to comment on LV diastolic function in light of atrial fibrillation, but current estimated mean left atrial pressure appeared to be elevated. Moderately dilated right heart chambers with marked right ventricular free wall hypokinesis and Doppler evidence of at least moderate to moderately severe pulmonary hypertension. Prominently dilated IVC with reduced respiratory collapse in keeping with elevated central venous pressure/right heart failure. Moderately severe thickening of three equal size aortic cusps with moderate aortic stenosis. Peak or mean transvalvular gradient was relatively soft, yet his ejection fraction is reduced, underestimating the degree of aortic stenosis. Very mild aortic insufficiency. Normal aortic dimensions Severe mitral annular calcification with thickening of the mitral leaflets but no LV inflow tract obstruction and only mild insufficiency. Normal appearing tricuspid valve with at least mild - moderate insufficiency. Last Edited By: Selena Novoa DO on Nov 27, 2018 01:45 Status: Chronic Problem Text: 12/03 - good diuresis over night with single dose of IV Lasix 20 mg x 1 Now on spironolactone 12.5 mg daily BP stable so far Resp status improved, but has a rattling cough - Oxygen sats upper 90s on 2L - try to wean Appears compensated currently Would monitor BP trend and fluid status on current regimen to assure his BP tolerates this dose of spironolactone while also assuring he remains compensated - suspect his Aortic stenosis is mod-severe which contributes to the difficulty managing his fluid status. 12/02: overnight, he developed dyspnea with rales. Rx lasix 20, feels better now. CXR consistent with pulmonary edema and increased interstitial markings compared to previous image. IV fluids stopped, started spironolactone. describes poor po intake for many days before previous hospital stay. Likely comes in somewhat volume compromised with his Right sided failure would lead to hypotension. Will continue IV fluids for now, monitor for increasing O2 requirements. (2) Hypotension Status: Resolved Problem Text: 12/03 0- stable -see above 12/02/: pressures were better this am as he entered fluid overload state before IV lasix given. 12/01/18: continues to demonstrate low systolic pressures when resting overnight with systolics in 70's. With stimulation he improves into low 100's, however. Urine output remains fair, although he has significant residual volumes based on post voiding bladder scan this am. Not overloaded with volume yet, so continue IV NS for now. Dr. Russell saw patient yesterday and found no definite need for pressors, so will move to PCU. Patient was gently hydrated throughout the day, which kept his blood pressures appropriate, but became more hypotensive by evening. After receiving a 1 L bolus without improvement and with some crackles, critical care was consulted. BP then improved sufficiently to be monitored for the time being; may tolerate a small bolus, or may require line placement and pressor. (3) DNR (do not resuscitate) Status: Chronic Problem Text: 12/02: patient reaffirms that his goal is to go home and stay there. discussed option of Hospice. Reviewed code status. He affirms DNR, DNI, would accept central line and pressors. Order written. (4) Atrial fibrillation Status: Chronic Response to Treatment: Stable Problem Text: 12/03 NSR on tele today Rate controlle don Metoprolol tolerating Eliquis without signs of bleeding Plan/VTE VTE Prophylaxis Ordered?: Yes (Eliquis) VTE Exclusion Pharmacological: Other (on eliquis) Plan Therapy: PT Advance Directives: DNR Disposition Get PT - needs to be able to walk up a couple stairs at home VS, I&O, 24H, [place] Vital Signs/I&O Vital Signs Date Time Temp Pulse Resp B/P (MAP) Pulse Ox O2 Delivery O2 Flow Rate FiO2 12/03/18 08:00 97.6 71 18 115/58 (77) 98 2.0 12/02/18 16:00 Nasal Cannula I&O- Last 24 Hours up to 6 AM 12/03/18 06:00 Intake Total 720 ml Output Total 1600 ml Balance -880 ml Laboratory Data 24H LABS Laboratory Tests 2 12/03/18 04:46: Nucleated Red Blood Cells % (auto) 0.0, Anion Gap 7L, Glomerular Filtration Rate > 60.0, Blood Urea Nitrogen 15, Creatinine 1.04, Sodium Level 136, Potassium Level 3.9, Chloride Level 102, Carbon Dioxide Level 27, Calcium Level 8.6L CBC/BMP Laboratory Tests 12/03/18 04:46 Red Blood Count 4.43, Mean Corpuscular Volume 101.8 H, Mean Corpuscular Hemoglobin 32.5, Mean Corpuscular Hemoglobin Concent 31.9 L, Red Cell Distribution Width 14.2, Calcium Level 8.6 L Microbiology Microbiology 11/30/18 Blood Culture - Preliminary, Resulted No Growth after 48 hours. All Specime... 11/30/18 Blood Culture - Preliminary, Resulted No Growth after 48 hours. All Specime... ZEFERINO QUINTANA PA-C Dec 03, 2018 08:47
[2018-12-04] VITALS (15 sets, daily range): BP systolic 103–133; BP diastolic 53–69; O2SAT 87–100
[2018-12-04] MEDS: guaiFENesin 200 MG TAB PO SCH ×4 (00:11→12:04)
[2018-12-04] MEDS: METOPROLOL TART 12.5 MG PER 1/2 TAB PO SCH ×3 (05:51→12:00)
[2018-12-04] MEDS: SLF 3 ML SYR IV SCH ×2 (06:19→13:58)
[2018-12-04] MEDS: APIXABAN 5 MG TAB (ELIQUIS) PO SCH (08:08)
[2018-12-04] MEDS: DOCUSATE SODIUM 100 MG CAP PO SCH (08:08)
[2018-12-04] MEDS: SPIRONOLACTONE 12.5MG PER 1/2 TABLET PO SCH (08:16)
[2018-12-04] MEDS ORDERED: FLEET ENEMA PR PRN (13:30)
[2018-12-04] MEDS ORDERED: BISACODYL 10 MG SUPP PR ONE (14:00)
--- NOTE | 2018-12-04 18:51 | DSES ---
DATE OF ADMISSION: 11/29/2018 DATE OF DISCHARGE: 12/04/2018 REASON FOR ADMISSION: The patient had been admitted to this facility, had been sent home; but when home, he was weak and lightheaded, was able to successfully transitioned into his house. He was brought back to hospital, found to have hypotension with blood pressures 86 systolic, 80/57, 80/52 and actually had a 76/54 on June 01 at 1931 hours. He was treated with fluid repletion and improved with pressures gradually improving. He was able to restart spironolactone. He is able to restart his metoprolol that he takes 6.25 mg 4 times a day and he has been tolerating these agents fairly well. His spironolactone 12.5 mg was not administered today because of low pressure. He is out of the last five documented dosing opportunities that was administered 3 out of the 5, being held because of hold parameter for low pressure. At this point, he feels well. He is not dyspneic. PHYSICAL EXAMINATION: He has no rales. He is alert and cooperative. Physical therapy indicates that he has adequately performed in the physical therapy requirements; although he was walked with oxygen. He does desaturate overnight into the mid 80s; therefore he needs home oxygen. Will need to set this up at discharge. He has not yet been walk with physical therapy to determine whether he needs the oxygen during exertion. At this point, we will make oxygen available for at bedtime with the possibility based on evaluation before he leaves the hospital that he may need to have it available for use during activity, as well as as needed while awake. His intent as stated is to go home and not leave there. He does not wish to return to the hospital. I suggest that he consider hospice referral and evaluation. Other laboratory data included hemoglobin of 14.40. He does have macrocytic indices, B12 and folic acid, however were normal. His platelet count was 231,000 and white count was normal at 95 hundred, BUN and creatinine 15 and 1.04 on discharge, potassium 3.9. DISCHARGE DIAGNOSIS: 1. Symptomatic hypotension. 2. Right pulmonary artery hypertension. 3. Moderate aortic stenosis. 4. Macrocytosis without anemia. DISCHARGE MEDICATIONS: - tamsulosin 0.4 mg in the evening - spironolactone 12.5 mg daily - omeprazole 20 mg in the evening - metoprolol 6.25 mg every 6 hours - ipratropium albuterol nebulizers - Lasix 40 mg daily - cyanocobalamin 500 mcg daily - apixaban 5 mg by mouth twice a day At discharge, will advise the patient to reduce spironolactone to12.5 mg 3 days a week to hopefully reduce risk for recurrent hypotensive events. Activity as tolerated. 2 grams sodium diet. Followup with primary care provider in 2 weeks.
== END 2018-12-04 16:09 | disposition home health service (06) | DRG 315 ==
LOC: M ED 17:14 → M ED INP 20:52 → M PCU 22:01 → M ICU 11-30 18:42 → M PCU 12-01 13:55
PROVIDERS: ADMIT Family Medicine; ATTEND Family Medicine
DX: I95.9 Hypotension, unspecified (principal); I50.22 Chronic systolic (congestive) heart failure; I42.9 Cardiomyopathy, unspecified; I35.0 Nonrheumatic aortic (valve) stenosis; I27.20 Pulmonary hypertension, unspecified; N40.0 Benign prostatic hyperplasia without lower urinary tract symptoms; I48.2 Chronic atrial fibrillation; N18.3 Chronic kidney disease, stage 3 (moderate); Z66 Do not resuscitate; Z87.891 Personal history of nicotine dependence; Z79.01 Long term (current) use of anticoagulants; Z79.899 Other long term (current) drug therapy